=== PATIENT | female | born 1995 | race Caucasian/White ===

== ENCOUNTER → 2017-09-15 | Outpatient (CLI) | payer OTHER ==
[~2017-09-15] MED LIST: ACET325T96 PO; MTR600X PO; OXYC-57 PO; PRENTAB26 PO
--- NOTE | 2017-09-15 13:09 | PAT Medication Instructions ---
Service Date Sep 15, 2017. Current Home Medication List Acetaminophen Tab (Tylenol), 650 MG PO PRN Multivit/Min/Iron/Fol Ac/Pren ( Vitamin), 1 TAB PO HS Medication Instructions For Your Scheduled Surgery - Take the following medications the morning of surgery with a sip of water: Acetaminophen Tab (Tylenol), 650 MG PO PRN (okay to take up to 4 hours prior to surgery if needed) - Take the following medications as scheduled the night before surgery: Multivit/Min/Iron/Fol Ac/Pren ( Vitamin), 1 TAB PO HS Acetaminophen Tab (Tylenol), 650 MG PO PRN (if needed) If you have any questions please call us at [phone] or [phone] or [phone]
[2017-09-15 14:08] LABS: BASO % 0.1 %; BASO ABS # 0.01 K/uL (0-0.2); EOS ABS # 0.08 K/uL (0-0.5); HEMATOCRIT 37.6 % (37-47); HEMOGLOBIN 12.5 g/dL (12.0-16.0); IG# 0.05 K/uL (0.00-0.02); LYMPH ABS # 1.98 K/uL (1.2-3.4); MEAN CELL VOLUME 84.9 fL (80-100); MEAN CORPUSCULAR HEMOGLOBIN 28.2 pg (25-34); MEAN CORPUSCULAR HGB CONC 33.2 g/dl (32-36); MEAN PLATELET VOLUME 12.1 fL (7.4-10.4); MONO % 6.3 %; NEUT ABS # 5.31 K/uL (1.4-6.5); PLATELET COUNT 188 K/uL (130-400); RED CELL DISTRIBUTION WIDTH CV 14.8 % (11.5-14.5); RED CELL DISTRIBUTION WIDTH SD 45.4 fL (36.4-46.3); WHITE BLOOD COUNT 7.93 K/uL (4.8-10.8)
== END | disposition home or self-care (01) ==
LOC: C.LAB 08:00 → EDSTATUS 09-30 07:30
PROVIDERS: ATTEND Obstetrics & Gynecology
DX: Z01.812 Encounter for preprocedural laboratory examination (principal)

== ENCOUNTER 2017-09-27 14:21 | Inpatient (IN) | payer OTHER ==
[~2017-09-27] VITALS: Ht 160 cm; Wt 126.0 kg
[~2017-09-27 14:21] MED LIST changes: -MTR600X PO; -OXYC-57 PO
[2017-09-27] MEDS ORDERED: LACTATED RINGER'S 1000ML 1,000 ML IV SCH ×2 (14:28→16:34)
[2017-09-27] MEDS ORDERED: CITRIC ACID/SODIUM CITRATE 15 ML UDC PO ONE (14:30)
--- NOTE | 2017-09-27 14:32 | History & Physical Bridge Note ---
H&P Re-Evaluation Bridge Note: I have examined the patient, reviewed the History & Physical and in the interval since the performance of the History & Physical I have noted the following changes of clinical significance: Patient scheduled for a repeat section on 09/30/17 but comes in today with contractions therefore will proceed with her repeat section today. Risks, benefits and alternatives were discussed and informed consent was already signed.
[2017-09-27] MEDS ORDERED: MoRPHine SULFATE PF 1 MG/ML 10 ML AMP/VIAL ONE (14:58)
[2017-09-27] MEDS ORDERED: FENTANYL CITRATE INJ 50 MCG/1 ML 2 ML VIAL ONE (14:58)
[2017-09-27 15:00] LABS: BASO % 0.1 %; BASO ABS # 0.01 K/uL (0-0.2); COMPLETE YES; EOS % 0.6 %; HEMATOCRIT 40.4 % (37-47); IG% 0.6 %; LYMPH % 19.4 %; LYMPH ABS # 1.64 K/uL (1.2-3.4); MEAN CELL VOLUME 85.4 fL (80-100); MEAN CORPUSCULAR HGB CONC 33.9 g/dl (32-36); MEAN PLATELET VOLUME 12.3 fL (7.4-10.4); MONO % 4.3 %; PLATELET COUNT 186 K/uL (130-400); RED BLOOD COUNT 4.73 M/uL (4.2-5.4); WHITE BLOOD COUNT 8.44 K/uL (4.8-10.8)
[2017-09-27] MEDS ORDERED: CEFAZOLIN IV 3,000 MG in SYRINGE 0 ML IV SCH (15:00)
[2017-09-27] MEDS ORDERED: CEFAZOLIN 3000MG IV PUSH 15 ML IV SCH (15:00)
[2017-09-27] MEDS ORDERED: KETOROLAC TROMETHAMINE 30 MG/ML VIAL ONE (16:02)
[2017-09-27] MEDS ORDERED: OXYTOCIN INJ 10 UNITS/ML VIAL ONE (16:02)
[2017-09-27] MEDS ORDERED: ONDANSETRON INJ 2 MG/ML 2 ML VIAL ONE (16:03)
--- NOTE | 2017-09-27 16:41 | [facility] Post Operative Brief Note ---
Immediate Operative Summary Operative Date Sep 27, 2017. Pre-Operative Diagnosis 1.IUP at 39.5 weeks 2.Previous caesarean section who desires repeat caesarean section 3.Active Labor Post-Operative Diagnosis same Procedure(s) Performed Repeat caesarean section with the of a live female child at 1542. Surgeon Dr. Chan Hiv Nurse Surgeon(s) Zuleyka Valadez RN Estimated Blood Loss 600 ml Findings Patient delivered a viable female infant weighing 9#4oz at 1542 in the vertex position via repeat LTCS. Apgars were 8 at 1 minute and 9 at 5 minutes. Meconium stained amniotic fluid noted at delivery. Cord blood was obtained. An intact placenta with a 3 VC delivered manually at 1543 and sent to pathology. Normal uterus and bilateral tubes and ovaries noted. Both patient and baby tolerated the surgery well and was sent to recovery with stable vital signs. Fluids (cc crystalloids) 1500 Specimens A: Placenta- Exam B: Cord Blood Drains Nielson to gravity Anesthesia Spinal Complication(s) None Disposition L&D
[2017-09-27] MEDS ORDERED: SUPERCREAM 0.870 % 15GM JAR EXT PRN (16:45)
[2017-09-27] MEDS ORDERED: SENNA 8.6 MG TAB PO PRN (16:45)
[2017-09-27] MEDS ORDERED: HYDROCORTISONE ACETATE 25 MG SUPP PR PRN (16:45)
[2017-09-27] MEDS ORDERED: MAGNESIUM HYDROXIDE SUSP 30 ML UDC PO PRN (16:45)
[2017-09-27] MEDS ORDERED: BENZOCAINE 20% AER SPR 82.5 GM CAN EXT PRN (16:45)
[2017-09-27] MEDS ORDERED: LANOLIN OINT EXT PRN ×2 (16:45)
[2017-09-27] MEDS ORDERED: DIPHTHERIA/TETANUS/PERTUSSIS 0.5 ML SYR/VIAL IM. ONE (16:45)
[2017-09-27] MEDS ORDERED: NALOXONE HCL INJ 0.08 MG in SYRINGE 1.8 ML IV PRN (16:46)
[2017-09-27] MEDS ORDERED: LACTATED RINGER'S 1000ML 500 ML IV PRN (16:46)
[2017-09-27] MEDS ORDERED: NALOXONE HCL INJ 1 MG in SODIUM CHLORIDE 0.9% 1000ML 1,000 ML IV PRN (16:46)
[2017-09-27] MEDS ORDERED: SODIUM CHLORIDE 0.9% 1000ML 1,000 ML IV PRN (16:46)
--- NOTE | 2017-09-27 16:48 | Anesthesiology Progress Note ---
Anesthesia Post Op Note Date & Time Sep 27, 2017 at 16:48 Notes Mental Status: alert / awake / arousable, participated in evaluation Nausea / Vomiting: adequately controlled Pain: adequately controlled Airway Patency, RR, SpO2: stable & adequate BP & HR: stable & adequate Hydration State: stable & adequate Neuraxial Anesthesia: was administered, sensory block is resolving Anesthetic Complications: no major complications apparent
[2017-09-27] MEDS ORDERED: KETOROLAC TROMETHAMINE 30 MG/ML VIAL IV. PRN (17:00)
[2017-09-27] MEDS ORDERED: DiphenhydrAMINE HCL 50 MG/ML VIAL IV PRN ×2 (17:00)
[2017-09-27] MEDS ORDERED: NALBUPHINE HCL INJ 10 MG/ML AMP IV PRN (17:00)
[2017-09-27] MEDS ORDERED: MoRPHine SULFATE PF 1 MG/ML 10 ML AMP/VIAL EPI PRN (17:00)
[2017-09-27] MEDS ORDERED: MoRPHine SULFATE 2 MG/ML CARP IV PRN (17:00)
[2017-09-27] MEDS ORDERED: NO NARCOTICS OR SEDATIVES SCH (17:00)
[2017-09-27] MEDS ORDERED: ONDANSETRON INJ 2 MG/ML 2 ML VIAL IV PRN (17:00)
[2017-09-27] MEDS ORDERED: NALOXONE HCL 0.4 MG/1 ML VIAL/CARP IV PRN (17:00)
[2017-09-27] MEDS ORDERED: EpHEDrine SULFATE INJ 50 MG/ML AMP IV PRN (17:00)
[2017-09-27] MEDS ORDERED: MEPERIDINE HCL 25 MG/ML CARP IV PRN (17:00)
[2017-09-27] MEDS ORDERED: PROMETHAZINE HCL INJ 6.25 MG in SODIUM CHLORIDE 0.9% 50ML 50 ML IV PRN (17:00)
--- NOTE | 2017-09-27 17:34 | OPERATIVE REPORT ---
DATE OF OPERATION: 09/27/2017 PREOPERATIVE DIAGNOSES: 1. Intrauterine at 39 weeks and 5 days gestation. 2. Active labor. 3. History of previous section, desires repeat section. POSTOPERATIVE DIAGNOSES: Same. OPERATIVE PROCEDURE: Repeat low transverse section. SURGEON: Dayron Chan DO. COUGAR HUNTER: Zuleyka Mosley RN. ANESTHESIA: Spinal. ESTIMATED BLOOD LOSS: 600 mL. IV FLUIDS: 1500 mL crystalloids. URINE OUTPUT: 100 mL clear yellow urine. SPECIMENS: Placenta and cord blood. DRAINS: Nielson to gravity. COMPLICATIONS: None. DISPOSITION: Labor and delivery. OPERATIVE FINDINGS: The patient delivered a viable female weighing 9 pounds 4 ounces at 1542 in the vertex position via repeat low transverse section. Apgars were 8 at 1 minute and 9 at 5 minutes. Meconium stained amniotic fluid noted at delivery. Cord blood was obtained and an intact placenta with 3-vessel cord was delivered manually at 1543 and sent to pathology. Normal uterus and bilateral tubes and ovaries were noted. Both patient and baby tolerated the surgery well and were sent to recovery with stable vital signs. INDICATIONS FOR PROCEDURE: The patient is a 22-year-old 2, para 1 at 39 weeks and 5 days gestation, who was scheduled for a repeat section on 09/30/2017, and has had a history of a previous section secondary to failure to progress. On the date of admission, 09/27/2017, she was in active labor, sammie every 4 to 5 minutes with spontaneous rupture of membranes with amniotic fluid noted. Therefore, the decision was made to proceed with her repeat section. OPERATIVE PROCEDURE IN DETAIL: The patient was taken to the operating room, where spinal anesthesia was administered. She was immediately placed in the dorsal supine position with a left lateral tilt and was prepped and draped in a manner appropriate for the procedure. Once anesthesia was found to be adequate, a Pfannenstiel skin incision was made over the previous surgical scar and was carried down through to a layer of the rectus fascia. The fascia was nicked in the midline and extended bilaterally with electrocautery. The superior aspect of the fascial incision was grasped with Jasen clamps, elevated, and the rectus muscles were dissected off with the use of the electrocautery and curved Roberts scissors. Likewise, the inferior aspect of the fascial incision was grasped with Jasen clamps, elevated, and the rectus muscles were dissected off with the use of the electrocautery and curved Roberts scissors. The rectus muscles were in midline. Peritoneum was grasped with hemostats x2 and entered with Metzenbaum scissors. The peritoneal incision was then extended cephalocaudally with traction. An extra large Kirt retractor was then placed within the abdomen. The vesicouterine peritoneum was identified and a bladder flap was created with the Metzenbaum scissors and digital traction. The bladder flap was reincorporated beneath the bladder blade. A transverse incision was then made on the uterus and extended bilaterally with the bandage scissors. Meconium stained amniotic fluid was noted. The head was identified and delivered through the incision along with the rest of the baby. The baby was bulb suctioned at delivery. Cord was clamped x2 and cut. The baby was immediately handed to an awaiting supervisor ovens for further evaluation and management. Please see their notes for further baby assessment. Cord blood was then obtained and an intact placenta with 3-vessel cord was delivered through the incision manually and sent to pathology. The uterus was then exteriorized and wrapped in a moist laparotomy sponge. The uterus was then cleared of any trailing membranes and debris with a laparotomy sponge. The uterus was then grasped with ring forceps at 4 quadrants and was closed with 0 Vicryl suture in a continuous locking fashion. A second layer of 0 Vicryl suture was used in an imbricating fashion to ensure hemostasis. Any residual bleeding was suture ligated with 0 Vicryl suture in a [id number] interrupted fashion. Excellent hemostasis was noted. The posterior cul-de-sac was then irrigated with warm saline solution. The uterus was then placed back within its normal anatomic position within the abdomen. The bladder flap was reapproximated to the lower uterine segment with 3-0 Vicryl suture in a continuous running fashion. The anterior cul-de-sac was then irrigated with warm saline solution. Excellent hemostasis was noted. The Kirt retractor was then removed along with the instruments. The peritoneum was then grasped with Keyona clamps in 4 quadrants and was closed with 2-0 Vicryl suture in a continuous running fashion. The rectus fascia was then closed with 0 Vicryl suture in a continuous running fashion. The incision was then irrigated with warm saline solution. The subcutaneous tissue was reapproximated with 2-0 Vicryl suture in an interrupted fashion. Skin was then closed with maged. Excellent hemostasis was noted through all tissue layers. All sponge, instrument, and needle counts were found to be correct x2. Both patient and baby tolerated the surgery well and were in recovery with stable vital signs. I attest to the content of the Intraoperative Record and any orders documented therein. Any exception s are noted below.
[2017-09-27] MEDS: DOCUSATE SODIUM 100 MG CAP PO SCH (20:17)
[2017-09-27] MEDS: SIMETHICONE 80 MG CHEW PO SCH (20:17)
[2017-09-27 20:30] VITALS: BP 131/82; PULSE 81; TEMP 36.9; O2SAT 98
[2017-09-27 20:46] VITALS: Ht 160 cm; Wt 126.0 kg
[2017-09-27 21:05] VITALS: O2SAT 100
[2017-09-27] MEDS ORDERED: INFLUENZA ADMINISTRATION CHARGE ONE (21:30)
[2017-09-27] MEDS ORDERED: INFLUENZA VIRUS QUAD VACCINE 0.5 ML SYR IM. ONE (21:30)
[2017-09-27] MEDS: OXYTOCIN INJ 30 UNITS in LACTATED RINGER'S 1000ML 1,000 ML IV SCH (21:58)
[2017-09-27 22:00] VITALS: O2SAT 99
[2017-09-27 23:00] VITALS: BP 130/74; PULSE 80; TEMP 37; O2SAT 97
[2017-09-28] VITALS (13 sets, daily range): BP systolic 107–131; BP diastolic 66–80; PULSE 80–94; TEMP 36.7–37.2; O2SAT 95–98
[2017-09-28] MEDS: OXYTOCIN INJ 30 UNITS in LACTATED RINGER'S 1000ML 1,000 ML IV SCH (05:40)
[2017-09-28 06:13] LABS: BASO % 0.1 %; BASO ABS # 0.01 K/uL (0-0.2); COMPLETE YES; EOS % 1.2 %; HEMATOCRIT 32.6 % (37-47); IG% 0.4 %; LYMPH % 18.8 %; LYMPH ABS # 1.43 K/uL (1.2-3.4); MEAN CELL VOLUME 85.6 fL (80-100); MEAN CORPUSCULAR HEMOGLOBIN 28.6 pg (25-34); MEAN CORPUSCULAR HGB CONC 33.4 g/dl (32-36); MEAN PLATELET VOLUME 11.7 fL (7.4-10.4); MONO % 6.4 %; NEUT % 73.1 %; PLATELET COUNT 148 K/uL (130-400); RED BLOOD COUNT 3.81 M/uL (4.2-5.4); WHITE BLOOD COUNT 7.61 K/uL (4.8-10.8)
[2017-09-28] MEDS ORDERED: DiphenhydrAMINE HCL 50 MG/ML VIAL IV PRN (08:00)
[2017-09-28] MEDS ORDERED: KETOROLAC TROMETHAMINE 30 MG/ML VIAL IV. PRN (09:00)
[2017-09-28] MEDS ORDERED: DC INTRASPINAL MORPHINE ONE (09:00)
[2017-09-28] MEDS: PRENATAL VITAMIN TAB PO SCH (09:00)
[2017-09-28] MEDS ORDERED: OXYCODONE/ACETAMINOPHEN 5-325 TAB PO PRN (09:00)
[2017-09-28] MEDS: DOCUSATE SODIUM 100 MG CAP PO SCH ×2 (09:00→19:32)
[2017-09-28] MEDS: SIMETHICONE 80 MG CHEW PO SCH ×4 (09:00→19:32)
[2017-09-28] MEDS ORDERED: ZOLPIDEM TARTRATE 5 MG TAB PO PRN (09:00)
[2017-09-28] MEDS ORDERED: ONDANSETRON INJ 2 MG/ML 2 ML VIAL IV PRN (09:00)
[2017-09-28] MEDS: FERROUS SULFATE 325 MG TAB PO SCH (09:00)
--- NOTE | 2017-09-28 10:38 | OB/GYN Progress Note ---
[employer] Progress Note Date of Service Sep 28, 2017. Subjective conversation w/ patient Ambulation: ambulating normally Voiding: no voiding problems Passing Gas: Yes Diet Tolerance: Regular Diet Lochia: Small Feeding Type: Breast Feeding Pain: 2/10 Notes: Doing well, no concerns. Pain well controlled. Tolerating regular diet, +flatus , -BM. Ambulating without difficulty. Lochia minimal. Objective Vital Signs Date Time Temp Pulse Resp B/P (MAP) Pulse Ox O2 Delivery O2 Flow Rate FiO2 09/28/17 09:00 18 97 09/28/17 08:15 37.2 87 18 107/72 (84) 95 Room Air 09/28/17 08:15 95 Room Air 09/28/17 08:00 18 95 09/28/17 06:45 18 97 09/28/17 05:30 18 97 09/28/17 04:25 20 98 09/28/17 03:00 18 98 09/28/17 03:00 37.1 94 18 125/80 (95) 98 Room Air 09/28/17 02:45 20 97 09/28/17 01:45 18 96 09/28/17 00:32 18 95 09/27/17 23:00 18 97 09/27/17 23:00 97 Room Air 09/27/17 23:00 37.0 80 18 130/74 (92) 97 Room Air 09/27/17 22:00 16 99 09/27/17 21:05 20 100 09/27/17 20:30 36.9 81 20 131/82 (98) 98 Room Air 09/27/17 20:30 20 98 09/27/17 20:30 98 Room Air 09/27/17 20:30 98 Room Air Physical Exam General Appearance: WELL-APPEARING Respiratory/Chest: chest non-tender, lungs clear Cardiovascular: regular rate, rhythm Abdomen: normal bowel sounds, soft Fundus: Firm Extremities: normal range of motion, non-tender, no calf tenderness Laboratory Results Last 24 Hours Test 09/27/17 14:53 09/28/17 05:53 White Blood Count 8.44 K/uL 7.61 K/uL Red Blood Count 4.73 M/uL 3.81 M/uL Hemoglobin 13.7 g/dL 10.9 g/dL Hematocrit 40.4 % 32.6 % Mean Corpuscular Volume 85.4 fL 85.6 fL Mean Corpuscular Hemoglobin 29.0 pg 28.6 pg Mean Corpuscular Hemoglobin Concent 33.9 g/dl 33.4 g/dl Platelet Count 186 K/uL 148 K/uL Mean Platelet Volume 12.3 fL 11.7 fL Neutrophils (%) (Auto) 75.0 % 73.1 % Lymphocytes (%) (Auto) 19.4 % 18.8 % Monocytes (%) (Auto) 4.3 % 6.4 % Eosinophils (%) (Auto) 0.6 % 1.2 % Basophils (%) (Auto) 0.1 % 0.1 % Neutrophils # (Auto) 6.33 K/uL 5.56 K/uL Lymphocytes # (Auto) 1.64 K/uL 1.43 K/uL Monocytes # (Auto) 0.36 K/uL 0.49 K/uL Eosinophils # (Auto) 0.05 K/uL 0.09 K/uL Basophils # (Auto) 0.01 K/uL 0.01 K/uL RDW Standard Deviation 45.6 fL 46.5 fL RDW Coefficient of Variation 14.9 % 15.0 % Immature Granulocyte % (Auto) 0.6 % 0.4 % Immature Granulocyte # (Auto) 0.05 K/uL 0.03 K/uL Assessment and Plan Post-Op Day Number: 1 Continue Routine Care: -Continue routine postop care.
[2017-09-28] MEDS: OXYCODONE/ACETAMINOPHEN 5-325 TAB PO PRN ×2 (13:57→19:33)
[2017-09-28] MEDS: IBUPROFEN 600 MG TAB PO PRN ×2 (13:57→19:32)
[2017-09-28] MEDS ORDERED: BISACODYL 5 MG TABEC PO ONE (22:00)
[2017-09-29] MEDS: IBUPROFEN 600 MG TAB PO PRN ×4 (00:52→15:07)
[2017-09-29] MEDS: OXYCODONE/ACETAMINOPHEN 5-325 TAB PO PRN ×4 (00:52→15:08)
[2017-09-29] MEDS ORDERED: BISACODYL 10 MG SUPP PR PRN (06:00)
[2017-09-29 07:09] LABS: HEMATOCRIT 32.5 % (37-47)
[2017-09-29 07:30] VITALS: BP 126/77; PULSE 68; TEMP 37; O2SAT 98
[2017-09-29] MEDS: SIMETHICONE 80 MG CHEW PO SCH ×3 (09:06→17:02)
[2017-09-29] MEDS: DOCUSATE SODIUM 100 MG CAP PO SCH (09:06)
[2017-09-29] MEDS: PRENATAL VITAMIN TAB PO SCH (09:06)
[2017-09-29] MEDS: FERROUS SULFATE 325 MG TAB PO SCH (09:06)
--- NOTE | 2017-09-29 10:10 | Surgery Progress Note ---
Surgery Progress Note Date of Service Sep 29, 2017. Subjective Post OP Day: 2 + feeling well, + ambulating, + pain controlled, + using REGISTERED REPRESENTATIVE, No complaints, No chest pain, No SOB, No bowel movement, No flatus, No nausea, No vomiting, No diet (Tolerating PO food and meds) Objective Vital Signs: Date Time Temp Pulse Resp B/P (MAP) Pulse Ox O2 Delivery O2 Flow Rate FiO2 09/29/17 09:53 Room Air 09/29/17 07:30 37.0 68 20 126/77 (93) 98 Room Air 09/28/17 23:10 97 Room Air 09/28/17 23:10 37.1 80 18 127/74 (91) 97 Room Air 09/28/17 15:40 97 Room Air 09/28/17 15:40 37.1 84 18 121/66 (84) 97 Room Air 09/28/17 12:30 36.7 82 18 131/80 (97) 97 Room Air General Appearance: WD/WN, no apparent distress Head: normocephalic, atraumatic Neck: supple, no adenopathy, thyroid normal, no JVD, no carotid bruits, trachea midline Respiratory/Chest: chest non-tender, lungs clear, normal breath sounds, no respiratory distress, no accessory muscle use Cardiovascular: regular rate, rhythm, no edema, no gallop, no JVD, no murmur Abdomen: normal bowel sounds, non tender, non distended, soft, no organomegaly , no pulsatile mass Incision(s): clean, dry, intact, no erythema, no drainage Extremities: normal range of motion, non-tender, normal inspection, no pedal edema, no calf tenderness, normal capillary refill, pelvis stable Laboratory Results: Results Past 24 Hours Test 09/29/17 06:44 Range/Units Hemoglobin 10.6 12.0-16.0 g/dL Hematocrit 32.5 37-47 % Assessment & Plan C./sec day #2 pt doing well No complaints anticipate disch tomorrow
--- NOTE | 2017-09-29 14:17 | Progress Note ---
Progress Note Date of Service Sep 29, 2017. Progress Note Pt wishes o go home today, as per Nurse Disch order placed
[2017-09-29] MEDS ORDERED: MTR600X PO (14:18)
[2017-09-29] MEDS ORDERED: OXYC-57 PO (14:18)
--- NOTE | 2017-09-29 14:19 | Discharge Instructions ---
Discharge Instructions Date of Service Sep 29, 2017. Admission Reason for Admission: R/O Labor, Previous Discharge Discharge Diagnosis / Problem: postop Discharge Goals Goal(s): Routine recovery after Activity Recommendations Activity Limitations: as noted below ACTIVITY RECOMMENDATIONS: * Gradual return to full activity over the next 2-3 weeks. * No lifting - nothing heavier than baby over the next 2-3 weeks. * Do not engage in vigorous exercise, sexual activity or sports until cleared by your physician. * Do not drive or operate any motorized equipment until cleared by your physician. * You may shower/bathe daily. BREAST CARE: If you are not breast feeding: * Wear a supportive bra 24 hours a day for one to two weeks. * Avoid stimulating your breasts and nipples as much as possible during the first few weeks after delivery. * When taking a shower, have the warm water hit your back, not breasts. * When your breasts feel full, apply ice packs. Usually three to four times a day helps ease the discomfort. * Take a mild pain medication (Tylenol/Motrin) when you are uncomfortable. If breast feeding: * Use breast milk to lubricate nipples. Lansinoh cream may be used for sore nipples. You do not need to remove cream prior to breast feeding. If using a different brand of cream, check the label for directions regarding removal of cream prior to nursing. * Wear a supportive bra. * If having problems with breasts or breast feeding, call a peoplesoft consultant or your health care provider. OVER THE COUNTER MEDICATION: * For discomfort or pain, you may use Acetaminophen (Tylenol), Ibuprofen (Advil ), or Naproxen (Aleve) following the package directions. * For constipation you may use Colace following the package directions. SPECIAL CARE INSTRUCTIONS: When you are discharged from the hospital, it is important for you to follow the instructions listed below: * During the first week at home, you should be able to care for yourself and your baby. In addition, the usual light household activities are encouraged. * Limit your activities to the way you feel. Do not try to clean the house or move furniture. Be sensible. * If you actively engage in sports and have done so up until the time of your delivery, you may resume these activities as soon as you feel able. This may take up to one month or even longer. Use good judgment. * Continue to take your vitamins for at least six weeks after the of your baby. * Your diet need not be limited unless you were on a special diet before your delivery. Breast-feeding mothers need around 2500 calories per day and at least 64-80 ounces of fluid per day (8 to 10 glasses). * You should eat foods from the four major food groups. Crash diets or fad diets are to be avoided. Eating lean meats, fresh fruits and vegetables, low-fat dairy products, high fiber foods and a regular exercise program, will help you get back to your pre- weight without putting your health at risk. * Constipation is sometimes a problem after delivery. Take a mild laxative as needed. If breast feeding, Milk of Magnesia is acceptable to use. You may use a suppository or Fleets enema if no episiotomy. * A daily shower or tub bath is suggested. Be sure to thoroughly and gently dry the perineum. * A bloody vaginal discharge will usually continue until around four weeks post . A small amount of bleeding may continue for as long as six weeks. Vaginal discharge changes from the bright red bleeding after delivery to pink then brownish and finally yellowish-pink before becoming white and disappearing. * Bleeding may increase with activity. Your first period may come in 4-8 weeks. If you are breast feeding, your period may be delayed even longer. * [place] (sex) can begin whenever both you and your partner feel comfortable and do not have any form of genital infection. It is recommended that you wait at least six weeks for internal and external healing to occur. If you have questions, please talk to your health care practitioner. A condom should be used to prevent infection and . * Foreplay, gentle intercourse and lubrication is very important the first several times to prevent pain. A water-based lubricant such as K-Y jelly or Astroglide may be used. * Tampons and/or Douching should be avoided until after six weeks check-up. * If you have RH negative blood and your baby is RH positive, you will receive RHOGAM by injection prior to discharge. The nurse will give you a card to keep with you that has the date and place that you received RHOGAM after delivery. * During your care, you had a Rubella screen done to check for the presence of rubella antibodies in your blood. If your test was negative, you will receive a Rubella vaccine prior to discharge. This vaccine may cause a fever, soreness at the injection site and flu-like symptoms. If these symptoms persist, notify your health care practitioner. is not advised for three months after a Rubella vaccine. * Verbalizes understanding of car seat law as reviewed with patient nursing. * Car Seat hand-out given and reviewed with patient by nursing. * Shaken baby information reviewed with patient by nursing. Call you doctor if: * Heavy bleeding (saturating several pads an hour) or passing clots the size of your fist. * A fever >101 degrees F (38.3 degrees C) on two occasions four hours apart and /or chills. * Unusual pain in the pelvic or vaginal areas. Pain should improve each day . * Call the doctor for any increased redness, drainage or swelling around the incision and any pain unrelieved by prescribed pain medication. * Any signs or symptoms of phlebitis (possible blood clots forming in the veins ): leg pain, warm, red or swollen area on leg. * "Baby Blues" lasting longer than two weeks. If you have any questions or concerns, call your health care practitioner at . FOLLOW-UP VISIT: * Incision check (staple removal) in 1 week. Please call doctor's office at to set up appointment. * Please call the office at to schedule a 6 week examination. It is important you keep this appointment. * It is important for you to make arrangements for either yearly or twice yearly check-ups thereafter. . Current Hospital Diet Patient's current hospital diet: Regular OB Diet Discharge Diet Recommended Diet: Regular Diet Procedures Procedures Performed: Repeat caesarean section with the of a live female child at 1542. Pending Studies Studies pending at discharge: no Medical Emergencies . Who to Call and When: Medical Emergencies: If at any time you feel your situation is an emergency, please call [phone] immediately. . Non-Emergent Contact Non-Emergency issues call your: Specialist . . "Provider Documentation" section prepared by Jordan Lyons. . VTE Core Measure Inpt VTE Proph given/why not?: Treatment not indicated
[2017-09-29 15:35] VITALS: BP 134/82; PULSE 87; TEMP 36.6; O2SAT 97
[2017-09-29] MEDS ORDERED: INFLUENZA VIRUS QUAD VACCINE 0.5 ML SYR IM. ONE (18:30)
[2017-09-29] MEDS ORDERED: INFLUENZA ADMINISTRATION CHARGE ONE (18:30)
[2017-09-29 19:10] VITALS: BP_DIAS 82; PULSE 87; TEMP 36.6
== END 2017-09-29 19:10 | disposition home or self-care (01) | DRG 766 ==
LOC: C.LD 14:21 → C.OPB 14:21 → C.LD 14:30 → C.OPB 14:30 → C.OBG 19:39
PROVIDERS: ADMIT Obstetrics & Gynecology; ATTEND Obstetrics & Gynecology
PROC: 10D00Z1 Extraction of Products of Conception, Low, Open Approach (ICD-10-PCS; principal; 2017-09-27 15:39)
DX: O34.219 Maternal care for unspecified type scar from previous cesarean delivery (principal); Z22.330 Carrier of Group B streptococcus; Z3A.39 39 weeks gestation of pregnancy

== ENCOUNTER 2021-04-17 12:19 | Inpatient (IN) ==
--- NOTE | 2021-04-17 13:24 | Progress Note ---
Date of Service April 17, 2021 Subjective Pt is 38+weeks Prior c/sec SROM @ 03;00hrs today preop orders placed
[2021-04-17] MEDS ORDERED: CITRIC ACID/SODIUM CITRATE 15 ML UDC PO SCH (13:30)
[2021-04-17] MEDS ORDERED: LACTATED RINGER'S 1,000 ML IV SCH ×3 (13:30→18:15)
[2021-04-17 13:49] LABS: Basophils # (auto) 0.01 K/uL (0-0.2); Basophils % (auto) 0.1 %; Eosinophils # (auto) 0.09 K/uL (0-0.5); Eosinophils % (auto) 1.3 %; Hematocrit (blood only) 35.1 % (37-47); Hemoglobin 11.9 g/dL (12.0-16.0); Immature Granulocytes # (auto) 0.02 K/uL (0.00-0.02); Immature Granulocytes % (auto) 0.3 %; Lymphocytes # (auto) 1.33 K/uL (1.2-3.4); Lymphocytes % (auto) 18.5 %; Mean Corpuscular Hemoglobin 28.8 pg (25-34); Mean Corpuscular Hgb Conc 33.9 g/dL (32-36); Monocytes # (auto) 0.41 K/uL (0.11-0.59); Monocytes % (auto) 5.7 %; Neutrophils # (auto) 5.31 K/uL (1.4-6.5); Neutrophils % (auto) 74.1 %; Platelet Count 212 K/uL (130-400); RDW Coefficient of Variation 14.4 % (11.5-14.5); RDW Standard Deviation 44.5 fL (36.4-46.3); Red Blood Count 4.13 M/uL (4.2-5.4); White Blood Count 7.17 K/uL (4.8-10.8)
[2021-04-17] MEDS ORDERED: DEXTROSE 5% IV SCH (14:00)
[2021-04-17] MEDS ORDERED: CEFOXITIN IV SCH (14:00)
--- NOTE | 2021-04-17 14:51 | Anesthesiology Consultation ---
Date of Service April 17, 2021 Assessment & Plan Chart Review Chart Review: Acceptable Risk for Surgery and Patient NOT seen in Pre Admission Testing Consults Requested none ASA ASA3 Proposed Anesthesia Anesthesia Type: Spinal History Surgery Operation Date: 04/17/21 15:00 Proposed Procedures p Section in LD - Jordan Lyons MD Height/Weight Height: 5 ft 3 in Weight: 119.295 kg Allergies Allergy/AdvReac Type Severity Reaction Status Date / Time Sulfa (Sulfonamide Allergy Unknown Unknown Verified 09/22/20 22:27 Antibiotics) Medications Home Medications Medication Instructions Recorded Confirmed Last Taken [id number] [id number] 1 tab PO DAILY 09/22/20 09/22/20 Unknown [] Past Medical History Medical History No significant past medical history Exercise / Class Metabolic Activity II 4-5 Yardwork/Stairs/Walk up hill Past Anesthesia History No Hx of Anesthesia Complications and No Family Hx of Anesthesia Complications History of PONV No Hx of PONV and No Hx of Motion Sickness Social History Smoking Status: Never smoker Hx Alcohol Use: No Hx Substance Use: No Physical Exam Vital Signs Last Vital Signs Temp 37.0 C 04/17/21 13:52 Resp 20 04/17/21 13:52 Testing Laboratory Results 04/17/21 13:37 Blood Type O Positive 04/17/21 13:37 Antibody Screen NEGATIVE 04/17/21 13:37
[2021-04-17] MEDS ORDERED: OXYTOCIN 10 UNITS/ML VIAL ONE ×3 (15:23→17:00)
[2021-04-17] MEDS ORDERED: fentaNYL citrate 100 MCG/2 ML VIAL ONE (15:26)
[2021-04-17] MEDS ORDERED: MoRPHine SULFATE PF 1 MG/ML 10 ML AMP/VIAL ONE (15:26)
[2021-04-17] MEDS ORDERED: PHENYLEPHRINE 100MCG/ML 5ML SYR ONE (16:15)
[2021-04-17] MEDS ORDERED: METHYLERGONOVINE MALEATE 0.2 MG/ML AMP ONE (16:24)
[2021-04-17] MEDS ORDERED: diphenhydrAMINE 50 MG/ML VIAL IV PRN (17:19)
[2021-04-17] MEDS ORDERED: PROMETHAZINE HCL 25 MG in SODIUM CHLORIDE 0.9% 50 ML IV PRN (17:19)
[2021-04-17] MEDS ORDERED: LACTATED RINGER'S 500 ML IV PRN (17:19)
[2021-04-17] MEDS ORDERED: MoRPHine SULFATE PF 1 MG/ML 10 ML AMP/VIAL INT SPINAL ONE (17:19)
[2021-04-17] MEDS ORDERED: NALOXONE HCL 1 MG in SODIUM CHLORIDE 0.9% 1000ML 1,000 ML IV PRN (17:19)
[2021-04-17] MEDS ORDERED: ePHEDrine sulfate 50 MG/ML AMP IV PRN (17:19)
[2021-04-17] MEDS ORDERED: ONDANSETRON INJ 2 MG/ML 2 ML VIAL IV PRN (17:19)
[2021-04-17] MEDS ORDERED: NALOXONE HCL 0.4 MG/1 ML VIAL/CARP IV PRN (17:19)
[2021-04-17] MEDS ORDERED: NALOXONE HCL 0.08 MG in SYRINGE 1.8 ML IV PRN (17:19)
[2021-04-17] MEDS ORDERED: DC INTRASPINAL MORPHINE SCH (17:30)
[2021-04-17] MEDS ORDERED: NO NARCOTICS OR SEDATIVES SCH (17:30)
[2021-04-17] MEDS ORDERED: SODIUM CHLORIDE 0.9% 1000ML 1,000 ML IV SCH (17:30)
[2021-04-17] MEDS ORDERED: BENZOCAINE 20% AER SPR 82.5 GM CAN EXT PRN (18:02)
[2021-04-17] MEDS ORDERED: SUPERCREAM 0.870% 15 GM JAR EXT PRN (18:02)
[2021-04-17] MEDS ORDERED: SENNA 8.6 MG TAB PO PRN (18:02)
[2021-04-17] MEDS ORDERED: HYDROCORTISONE ACETATE 25 MG SUPP PR PRN (18:02)
[2021-04-17] MEDS ORDERED: DIPHTHERIA/TETANUS/PERTUSSIS 0.5 ML SYR/VIAL IM ONE (18:02)
[2021-04-17] MEDS ORDERED: MAGNESIUM HYDROXIDE SUSP 30 ML UDC PO PRN (18:02)
--- NOTE | 2021-04-17 18:02 | Post Operative Brief Note ---
Immediate Post Op Note v1 Date of Surgery April 17, 2021 Pre & Post Diagnosis Operation Date: 04/17/21 15:00 Pre-Op Diagnosis: SROM AT 38 weeks; Previous Sections x 2; Desires Repeat Section Post-Op Diagnosis: SROM AT 38 weeks; Previous Sections x 2; Desires Repeat Section I identified the patient and participated in the time-out.: Yes Procedure Operation Date: 04/17/21 15:00 Actual Procedures p Section in or #3; Live Female Infant at 1620(Bilateral) - Jordan Lyons MD Surgeon Jordan Lyons MD [employer] Assembler dr agarwal Estimated Blood Loss 700 Findings Consistent with Post-Op Diagnosis Drains Nielson Catheter
--- NOTE | 2021-04-17 18:21 | Anesthesiology Progress Note ---
Date of Service April 17, 2021 Anesthesia Post Procedure Vital Signs Vital Signs: Temp Pulse Resp BP Pulse Ox 04/17/21 18:18 71 95 04/17/21 18:13 69 93 04/17/21 18:11 115/62 04/17/21 18:08 86 93 04/17/21 18:03 75 95 04/17/21 18:00 73 20 117/62 04/17/21 17:58 71 95 04/17/21 17:53 76 94 04/17/21 17:50 85 18 110/75 04/17/21 17:48 77 95 04/17/21 17:43 80 95 04/17/21 17:40 81 18 118/67 04/17/21 17:38 117 H 100 04/17/21 17:36 71 94 04/17/21 17:33 71 96 04/17/21 17:30 75 20 120/72 04/17/21 17:28 78 92 04/17/21 17:23 82 96 04/17/21 17:21 80 117/65 04/17/21 17:20 36.5 C 20 04/17/21 17:18 106 H 137/72 98 04/17/21 13:52 37.0 C 20 Transfer of Care Handoff Completed per policy Notes Mental Status: alert / awake / arousable Patient Amnestic to Procedure: Yes Nausea / Vomiting: adequately controlled Pain: adequately controlled Airway Patency, RR, SpO2: stable & adequate BP & HR: stable & adequate Hydration State: stable & adequate Neuraxial Anesthesia: was administered and sensory block is resolving Anesthetic Complications: no major complications apparent
[2021-04-17] MEDS: KETOROLAC 30 MG/ML VIAL IV PRN (19:17)
[2021-04-17] MEDS: OXYTOCIN 20 UNITS in LACTATED RINGER'S 1,000 ML IV SCH (19:50)
[2021-04-17] MEDS: SIMETHICONE 80 MG CHEW PO SCH (21:22)
[2021-04-17] MEDS: DOCUSATE SODIUM 100 MG CAP PO SCH (21:22)
--- NOTE | 2021-04-17 21:25 | Operative Report (OR) ---
DATE OF OPERATION: 04/17/2021 INDICATION FOR SURGERY: This is a 25-year-old G4, P2, patient has had prior sections and presently at 38 weeks. Today, she presented to labor and delivery with spontaneous rupture of membranes at about 3:00 a.m. this morning. The plan is to proceed with another section. PREOPERATIVE DIAGNOSES: 1. at term. 2. Previous section, wishes to have repeat section x3. POSTOPERATIVE DIAGNOSES: 1. at term. 2. Previous section, wishes to have repeat section x3. SURGEON: Jordan Lyons MD. ASSISTANTS: Dr. Rocha and Zuleyka Valadez RN. COMPLICATIONS: None. DRAINS: None. FINDINGS: in cephalic presentation. Uterus, tubes are normal. Minimal adhesions in the pelvis. PATHOLOGY: cord blood.placenta DISPOSITION: Stable to recovery room. ESTIMATED BLOOD LOSS: 700 mL. INTRAVENOUS FLUIDS: 2200 mL. URINE OUTPUT: 150 mL of clear urine at the end of procedure. ANESTHESIA: Spinal. PROCEDURE: Repeat section x3. DESCRIPTION OF PROCEDURE: The patient was taken to the operating room where she was prepped and draped in normal sterile fashion. A transverse incision was made through the old scar, carried down to the fascia. Fascia was incised in the midline and extended laterally on both sides. Fascia was carefully dissected superiorly and inferiorly from the rectus abdominus muscle. Peritoneum was identified and entered sharply. Once inside the abdomen, an Kirt retractor was placed for retraction. Findings in the abdomen are as dictated above. A low transverse incision was made on the uterus and extended laterally on both sides with a scalpel and bandage scissors. 's head was delivered. There was no nuchal cord. Cord was clamped and cut and handed to the waiting pediatric team. Details of the is in the pediatric record. Cord blood was obtained. Placenta was manually removed. Uterus was exteriorized and cleared of all clots and debris. Uterus was closed in 2 layers using Vicryl stitch. Copious amount of irrigation used to irrigate the abdomen. There was good hemostasis. The Kirt retractor was removed and the fascia was closed in a running fashion using PDS suture. Once again, good hemostasis was obtained. More irrigation was used to irrigate the subcutaneous space. Plain sutures were used to close the subcutaneous space and skin was closed with maged. All instruments were removed from the uterus and accounted for x2 including sponges, needles and retractors. The patient was returned to recovery room in stable condition. I attest to the content of the Intraoperative Record and any orders documented therein. Any exceptions are noted below. CARLITO
[2021-04-18 06:19] LABS: Basophils # (auto) 0.01 K/uL (0-0.2); Basophils % (auto) 0.1 %; Eosinophils # (auto) 0.07 K/uL (0-0.5); Eosinophils % (auto) 0.9 %; Hematocrit (blood only) 32.3 % (37-47); Hemoglobin 10.8 g/dL (12.0-16.0); Immature Granulocytes # (auto) 0.03 K/uL (0.00-0.02); Immature Granulocytes % (auto) 0.4 %; Lymphocytes % (auto) 17.4 %; Mean Corpuscular Hemoglobin 28.9 pg (25-34); Mean Corpuscular Hgb Conc 33.4 g/dL (32-36); Mean Corpuscular Volume 86.4 fL (80-100); Monocytes # (auto) 0.56 K/uL (0.11-0.59); Neutrophils # (auto) 5.97 K/uL (1.4-6.5); Neutrophils % (auto) 74.2 %; Platelet Count 213 K/uL (130-400); RDW Coefficient of Variation 14.5 % (11.5-14.5); RDW Standard Deviation 45.3 fL (36.4-46.3); Red Blood Count 3.74 M/uL (4.2-5.4); White Blood Count 8.04 K/uL (4.8-10.8)
[2021-04-18] MEDS: SIMETHICONE 80 MG CHEW PO SCH ×3 (08:47→20:58)
[2021-04-18] MEDS: PRENATAL VITAMIN 1 TAB PO SCH (08:47)
[2021-04-18] MEDS: DOCUSATE SODIUM 100 MG CAP PO SCH ×2 (08:47→20:56)
[2021-04-18] MEDS: FERROUS SULFATE 325 MG TAB PO SCH (08:47)
--- NOTE | 2021-04-18 09:19 | Obstetrical Progress Note ---
Date of Service April 18, 2021 Subjective Ambulation: limited ambulation Voiding: guido catheter in place Passing Gas:: No Diet Tolerance:: regular diet Lochia:: Small Feeding Type:: breast feeding Review of Systems All systems reviewed & are unremarkable except as noted in HPI & below Physical Exam Constitutional WD/WN, vitals as above + obese and comfortable abdomen soft and non-tender incision c/d/i Guido draining well no edema neg Larissa's will increase care and plan for Guido removal this AM Results & Data ([facility]) Vital Signs (Past 12 Hours) Vital Signs Temp Pulse Resp BP Pulse Ox 04/18/21 08:00 36.7 C 76 18 113/74 94 04/18/21 07:40 18 97 04/18/21 06:15 16 95 04/18/21 05:00 16 95 04/18/21 04:15 16 96 04/18/21 03:00 36.8 C 80 16 100/67 96 04/18/21 02:20 16 94 04/18/21 01:15 16 94 04/18/21 00:10 16 93 04/17/21 23:15 36.5 C 76 16 110/69 95 04/17/21 22:18 16 97 04/17/21 21:20 16 97 Laboratory Results Laboratory Results - last 72 hr 04/17/21 04/17/21 04/17/21 13:37 13:37 13:55 WBC 7.17 RBC 4.13 L Hgb 11.9 L Hct 35.1 L MCV 85.0 MCH 28.8 MCHC 33.9 RDW Std Deviation 44.5 RDW Coeff of Sanju 14.4 Plt Count 212 MPV 11.0 H Immature Gran % (Auto) 0.3 Neut % (Auto) 74.1 Lymph % (Auto) 18.5 [place] % (Auto) 5.7 Eos % (Auto) 1.3 Baso % (Auto) 0.1 Neut # (Auto) 5.31 Lymph # (Auto) 1.33 [place] # (Auto) 0.41 Eos # (Auto) 0.09 Baso # (Auto) 0.01 Immature Gran # (Auto) 0.02 COVID-19 Eval [facility] SARS-CoV-2, RNA, NAAT Blood Type O Positive Antibody Screen NEGATIVE 04/17/21 04/18/21 13:55 06:09 WBC 8.04 RBC 3.74 L Hgb 10.8 L Hct 32.3 L MCV 86.4 MCH 28.9 MCHC 33.4 RDW Std Deviation 45.3 RDW Coeff of Sanju 14.5 Plt Count 213 MPV 11.0 H Immature Gran % (Auto) 0.4 Neut % (Auto) 74.2 Lymph % (Auto) 17.4 [place] % (Auto) 7.0 Eos % (Auto) 0.9 Baso % (Auto) 0.1 Neut # (Auto) 5.97 Lymph # (Auto) 1.40 [place] # (Auto) 0.56 Eos # (Auto) 0.07 Baso # (Auto) 0.01 Immature Gran # (Auto) 0.03 H COVID-19 Eval Order SARS-CoV-2, RNA, NAAT NEGATIVE Blood Type Antibody Screen
[2021-04-18] MEDS: KETOROLAC 30 MG/ML VIAL IV PRN (10:50)
[2021-04-18] MEDS ORDERED: PROMETHAZINE HCL 25 MG in SODIUM CHLORIDE 0.9% 50 ML IV PRN (11:20)
[2021-04-18] MEDS ORDERED: ONDANSETRON INJ 2 MG/ML 2 ML VIAL IV PRN (11:20)
[2021-04-18] MEDS ORDERED: diphenhydrAMINE 50 MG/ML VIAL IV PRN (11:20)
[2021-04-18] MEDS ORDERED: ZOLPIDEM TARTRATE 5 MG TAB PO PRN (11:20)
[2021-04-18] MEDS ORDERED: diphenhydrAMINE Capsule 25 MG CAP PO PRN (11:20)
[2021-04-18] MEDS: IBUPROFEN 600 MG TAB PO PRN ×2 (16:29→20:56)
[2021-04-18] MEDS: oxyCODONE/ACETAMINOPHEN 5mg/325mg TAB PO PRN ×2 (16:29→20:56)
[2021-04-18] MEDS ORDERED: bisacodyL 5 MG TABEC PO SCH (20:00)
[2021-04-19] MEDS: IBUPROFEN 600 MG TAB PO PRN ×2 (05:26→09:40)
[2021-04-19] MEDS: OXYTOCIN 20 UNITS in LACTATED RINGER'S 1,000 ML IV SCH (06:06)
[2021-04-19 06:28] LABS: Hematocrit (blood only) 31.9 % (37-47); Hemoglobin 10.3 g/dL (12.0-16.0)
[2021-04-19] MEDS: DOCUSATE SODIUM 100 MG CAP PO SCH (07:54)
[2021-04-19] MEDS: FERROUS SULFATE 325 MG TAB PO SCH (07:54)
[2021-04-19] MEDS: PRENATAL VITAMIN 1 TAB PO SCH (07:54)
[2021-04-19] MEDS: SIMETHICONE 80 MG CHEW PO SCH (07:55)
--- NOTE | 2021-04-19 09:30 | Obstetrical Progress Note ---
Date of Service April 19, 2021 Subjective Ambulation: ambulating normally Voiding: no voiding problems Passing Gas:: Yes Diet Tolerance:: regular diet Lochia:: Small Feeding Type:: breast feeding abdomen soft and non-tender incision c/d/i no edema/neg Larissa's for d/c today f/u in 1 week in office Results & Data ([facility]) Vital Signs (Past 12 Hours) Vital Signs Temp Pulse Pulse Resp BP Pulse Ox 04/19/21 07:56 36.6 C 74 18 116/77 96 04/19/21 00:05 18 04/18/21 23:17 36.9 C 68 18 106/69 96 Laboratory Results Laboratory Results - last 48 hr 04/17/21 04/17/21 04/17/21 13:37 13:37 13:55 WBC 7.17 RBC 4.13 L Hgb 11.9 L Hct 35.1 L MCV 85.0 MCH 28.8 MCHC 33.9 RDW Std Deviation 44.5 RDW Coeff of Sanju 14.4 Plt Count 212 MPV 11.0 H Immature Gran % (Auto) 0.3 Neut % (Auto) 74.1 Lymph % (Auto) 18.5 [place] % (Auto) 5.7 Eos % (Auto) 1.3 Baso % (Auto) 0.1 Neut # (Auto) 5.31 Lymph # (Auto) 1.33 [place] # (Auto) 0.41 Eos # (Auto) 0.09 Baso # (Auto) 0.01 Immature Gran # (Auto) 0.02 COVID-19 Eval Order Covid19 [facility] SARS-CoV-2, RNA, NAAT Blood Type O Positive Antibody Screen NEGATIVE 04/17/21 04/18/21 04/19/21 13:55 06:09 05:59 WBC 8.04 RBC 3.74 L Hgb 10.8 L 10.3 L Hct 32.3 L 31.9 L MCV 86.4 MCH 28.9 MCHC 33.4 RDW Std Deviation 45.3 RDW Coeff of Sanju 14.5 Plt Count 213 MPV 11.0 H Immature Gran % (Auto) 0.4 Neut % (Auto) 74.2 Lymph % (Auto) 17.4 [place] % (Auto) 7.0 Eos % (Auto) 0.9 Baso % (Auto) 0.1 Neut # (Auto) 5.97 Lymph # (Auto) 1.40 [place] # (Auto) 0.56 Eos # (Auto) 0.07 Baso # (Auto) 0.01 Immature Gran # (Auto) 0.03 H COVID-19 Eval Order SARS-CoV-2, RNA, NAAT NEGATIVE Blood Type Antibody Screen
[2021-04-19] MEDS ORDERED: bisacodyL 10 MG SUPP PR PRN (18:02)
--- NOTE | 2021-04-24 22:06 | Discharge Summary (DS) ---
DATE OF ADMISSION: 04/17/2021 DATE OF DISCHARGE: 04/19/2021 CHIEF COMPLAINT: 1. at term. 2. Previous section, wishes to have repeat . 3. The patient presented to labor and delivery with spontaneous rupture of membranes. HISTORY OF PRESENT ILLNESS: This is a 25-year-old , who presented to labor and delivery on 06/2021. She was 38 weeks and had scheduled for section after 39 weeks; however, on this fateful day, the patient presented with spontaneous rupture of membrane. Decision was therefor e made to proceed with section. section was performed. Details of surgery is in t he surgical note and the patient delivered a live . Surgery was otherwise unremarkable. [facility] postop day #1 and was discharged home on 04/19/2021 in stable c ondition. PAST MEDICAL HISTORY: None. PAST SURGICAL HISTORY: Prior section. FAMILY HISTORY: Noncontributory. SOCIAL HISTORY: The patient was single and had a previous infant delivery via . FAMILY HISTORY: Noncontributory. ALLERGIES: THE PATIENT IS ALLERGIC TO SULFA. REVIEW OF SYSTEMS: Negative except as dictated in the HPI. PHYSICAL EXAMINATION: GENERAL: A well-developed, well-nourished white female in no acute distress. VITAL SIGNS: On 04/19/2021 showed a temperature of 36.6, pulse of 74, respirations 18, blood pressure was 116/77. HEART: S1, S2, regular rhythm and rate. LUNGS: Clear to auscultation bilaterally. ABDOMEN: Nontender, nondistended. Incision was clean and dry. EXTREMITIES: No cyanosis, clubbing or edema. LABORATORY DATA: Hemoglobin on 04/19 was 10.3, hematocrit was 31.9. CONDITION ON DISCHARGE: Stable. OPERATIONS: Repeat section. DISCHARGE DIAGNOSIS: Postoperative after section. PLAN ON DISCHARGE: The patient is discharged home with instructions regarding activity, diet, followu p appointment and medications. Job ID: [id number]
== END 2021-04-19 13:00 | disposition home or self-care (01) | DRG 788 ==
LOC: OPB 12:19 → 4S2 12:20

== ENCOUNTER 2022-11-11 05:08 | Observation (INO) ==
[2022-11-11] MEDS ORDERED: FAMOTIDINE 20MG IV PUSH 20 MG/5 ML SYR IV STA (05:34)
[2022-11-11] MEDS ORDERED: GI COCKTAIL ED USE PO ONE (05:34)
--- NOTE | 2022-11-11 05:35 | Emergency Department Note ---
History of Present Illness General Chief complaint: Cardiac Assessment Stated complaint: UPPER BACK,CHEST,ABDOMINAL PAIN Time Seen by Provider: 11/11/22 05:20 History of Present Illness Maximum Pain Intensity: 8 This is a 27-year-old female that presents to the emergency department via pr ivate vehicle with complaints of "upper back, chest, abdominal pain". The patient notes that she awoke from sleep around 22:30 AM with lower chest pain, upper abdominal pain and pain into her back. She denies any trauma or injury. No nausea, vomiting, fevers or chills. No history of reflux or gastritis. No history of PE or UT. Patient notes that the pain comes in waves and she will feel short of breath with the increases of pain. Patient has a history of 3 C- sections. No history of abdominal surgeries. No pertinent past medical history. She is allergic to sulfa drugs. No preceding illness. Home Medications Medication Instructions Recorded Confirmed Type fluoxetine 10 mg capsule (Prozac) 10 mg PO DAILY 05/16/22 06/25/22 History levonorgestrel 20 mcg/24 hours (8 intrauterine 06/25/22 06/25/22 History yrs) 52 mg intrauterine device (Mirena) oxycodone-acetaminophen 5 mg-325 1 tab PO Q6H PRN pain #14 tabs 11/11/22 Rx mg tablet (Endocet) Allergies Allergy/AdvReac Type Severity Reaction Status Date / Time Sulfa (Sulfonamide Allergy Unknown Unknown Verified 06/25/22 11:43 Antibiotics) Past Med/Surg History Medical History delivery delivered No significant past medical history Surgical History S/P section x3 Family History Denies family history of Ovarian cancer Breast cancer Lung cancer Colorectal cancer Social History Smoking Status: Current some day smoker Tobacco Type: E-cigarettes / Vaping Hx Alcohol Use: No Hx Substance Use: No Preferred Language: Togolese Beliefs That Will Affect Care: None marital status: Single Current Living Situation: Significant Other Feels Safe at Home: Yes Assistive Devices: Glasses Review of Systems A total of 10 systems reviewed and were otherwise negative Physical Exam Vital Signs Vital Signs - 24 hr 11/11/22 05:14 11/11/22 05:57 11/11/22 06:34 Temperature 36.2 C L Temperature Source Temporal Artery Scan Pulse Rate 75 Pulse Rate [Apical] 72 Pulse Rate [Right Finger] Pulse Rhythm [Apical] Pulse Rhythm [Right Finger] Pulse Strength [Right Finger] Respiratory Rate 20 20 Respiratory Effort / Characteristics Non-Labored Spontaneous Non-Labored Spontaneous Respiratory Depth Normal Normal Respiratory Pattern Regular Blood Pressure 155/100 H Blood Pressure [Left Arm] 148/75 H Blood Pressure Mean 118 Blood Pressure Mean [Left Arm] 99 Blood Pressure Position [Left Arm] Sitting Pulse Oximetry 98 97 99 Oxygen Delivery Method Room Air Room Air Room Air Oxygen Flow Rate Sepsis New/Unexplained Change in Mental Status N/A Sepsis Action Taken by Nursing No Action Required 11/11/22 08:00 11/11/22 10:38 11/11/22 10:00 Temperature Temperature Source Pulse Rate 89 Pulse Rate [Apical] 73 89 Pulse Rate [Right Finger] Pulse Rhythm [Apical] Pulse Rhythm [Right Finger] Pulse Strength [Right Finger] Respiratory Rate 17 22 22 Respiratory Effort / Characteristics Non-Labored Non-Labored Respiratory Depth Normal Normal Respiratory Pattern Regular Regular Blood Pressure 136/64 Blood Pressure [Left Arm] 135/76 136/64 Blood Pressure Mean Blood Pressure Mean [Left Arm] 95 88 Blood Pressure Position [Left Arm] Pulse Oximetry 99 99 99 Oxygen Delivery Method Room Air Room Air Room Air Oxygen Flow Rate Sepsis New/Unexplained Change in Mental Status Sepsis Action Taken by Nursing 11/11/22 10:53 11/11/22 12:50 Temperature 37.2 C 36.4 C L Temperature Source Oral Temporal Artery Scan Pulse Rate Pulse Rate [Apical] 61 Pulse Rate [Right Finger] 77 Pulse Rhythm [Apical] Regular Pulse Rhythm [Right Finger] Regular Pulse Strength [Right Finger] Normal Respiratory Rate 20 18 Respiratory Effort / Characteristics Non-Labored Spontaneous Non-Labored Respiratory Depth Normal Normal Respiratory Pattern Regular Regular Blood Pressure Blood Pressure [Left Arm] 114/87 121/69 Blood Pressure Mean Blood Pressure Mean [Left Arm] 96 86 Blood Pressure Position [Left Arm] Semi-fowlers Pulse Oximetry 97 93 Oxygen Delivery Method Room Air Oxymask Oxygen Flow Rate 15 Sepsis New/Unexplained Change in Mental Status Sepsis Action Taken by Nursing VITAL SIGNS - Vital signs and nursing notes were reviewed. Stable and afebrile. GENERAL -27-year-old female appearing her stated age who is in no acute distress. Communicates well with provider and answers questions appropriately. SKIN - Without rashes. No meningeal or petechial rash. HEAD - NC/AT. EYES - PERRL with EOMI bilaterally. Sclera anicteric. EARS - No deformities of external structures noted on gross examination bilaterally. NOSE - Midline and without cyanosis. No epistaxis or purulent drainage noted. MOUTH/OROPHARYNX - Without perioral cyanosis. NECK - Neck with FROM. No nuchal rigidity. LUNGS - Chest wall symmetric without accessory muscle use, intercostals retractions, or central cyanosis. Normal vesicular breath sounds CTA B/L. No wheezes, rales, or rhonchi appreciated. CARDIAC - RRR with S1/S2. No murmur, rubs, or gallops appreciated. ABDOMEN - Abdominal contour normal without pulsations or visible masses. BS normoactive all four quadrants. No tenderness, palpable masses, hepatosplenomegaly, or ascites noted. EXTREMITIES - No clubbing or peripheral cyanosis. No pretibial edema present. +5/5 strength noted in UE/LE bilaterally. NEUROLOGIC - Cranial nerves II through XII grossly intact. Sensory intact to light touch throughout. PSYCH - A&O, and cooperates fully with examiner. Pt is very pleasant and interac ts well with examiner. Course Administered Medications Acetaminophen (Acetaminophen 325 Mg Tab) 650 mg PO Q6H PRN PRN Reason: Pain & Pre PT Stop: 12/11/22 15:00 Last Admin: 11/11/22 15:17 Dose: 650 mg Documented By: KY Lactated Ringer's (Lr) 1,000 mls @ 100 mls/hr IV .Q10H RAJESH Stop: 12/11/22 15:00 Last Infusion: 11/11/22 18:00 Dose: 100 mls/hr Documented By: Infusion: 11/11/22 17:04 Dose: 0 mls/hr Documented By: Admin: 11/11/22 15:08 Dose: 100 mls/hr Documented By: KY Ampicillin Sodium/Sulbactam Sodium 3,000 mg/ Sodium Chloride 108 mls @ 200 mls/hr IV Q6H RAJESH; Protocol Stop: 11/12/22 15:00 Last Admin: 11/11/22 21:07 Dose: 200 mls/hr Documented By: Infusion: 11/11/22 17:38 Dose: 0 mls/hr Documented By: Admin: 11/11/22 17:04 Dose: 200 mls/hr Documented By: [place] Miscellaneous (Check Scopolamine Patch Placement) 1 each N/A QS RAJESH Stop: 11/14/22 05:59 Last Admin: 11/11/22 15:18 Dose: 1 each Documented By: KY Oxycodone/Acetaminophen (Oxycodone/Acetaminophen 5mg/325mg Tab) 1 tab PO Q4H PRN PRN Reason: MODERATE Pain (4,5,6) & Pre PT Stop: 11/25/22 15:00 Last Admin: 11/11/22 18:00 Dose: 1 tab Documented By: KY Discontinued Medications Al Hydrox/Mg Hydrox/Simethicone (Gi Cocktail Ed Use) 1 dose PO ONE ONE Stop: 11/11/22 05:35 Last Admin: 11/11/22 05:49 Dose: 1 dose Documented By: ZANE Bupivacaine HCl (Bupivacaine 0.5 % 5 Mg/1 Ml Mpf 30ml Vial) Confirm Administered Dose 30 ml .ROUTE .STK-MED ONE Stop: 11/11/22 10:30 Last Admin: 11/11/22 11:54 Dose: 30 ml Documented By: MESHA Fentanyl Citrate (Fentanyl Citrate 100 Mcg/2 Ml Vial) 25 mcg IV Q5M PRN PRN Reason: PACU Use Only-Pain Stop: 11/11/22 19:05 Last Admin: 11/11/22 14:16 Dose: 25 mcg Documented By: FARHANA Famotidine (Pepcid 20mg Iv Push) 20 mg in 5 mls @ 2.5 mls/min IV NOW STA Stop: 11/11/22 05:35 Last Admin: 11/11/22 05:49 Dose: 2.5 mls/min Documented By: ZANE Ampicillin Sodium/Sulbactam Sodium 3,000 mg/ Sodium Chloride 108 mls @ 200 mls/hr IV NOW ONE; Protocol Stop: 11/11/22 11:02 Last Admin: 11/11/22 15:09 Dose: Not Given Documented By: KY Morphine Sulfate (Morphine Sulfate 4 Mg/Ml 1 Ml Carp\\Vial) 4 mg IV NOW STA Stop: 11/11/22 07:44 Last Admin: 11/11/22 08:20 Dose: 4 mg Documented By: EM Ondansetron HCl (Ondansetron Inj 2 Mg/Ml 2 Ml Vial) 4 mg IV NOW STA Stop: 11/11/22 07:44 Last Admin: 11/11/22 08:20 Dose: 4 mg Documented By: EM Scopolamine (Scopolamine 1 Mg Tdsy) 1 mg TD ONE ONE Stop: 11/11/22 11:06 Last Admin: 11/11/22 11:07 Dose: 1 mg Documented By: DAIANA Scopolamine (Scopolamine 1 Mg Tdsy) Confirm Administered Dose 1 mg TD .STK-MED ONE Stop: 11/11/22 11:08 Last Admin: 11/11/22 15:08 Dose: Not Given Documented By: KY Medical Decision Making Laboratory Data Result diagrams: 11/11/22 05:40 11/11/22 05:40 Lab Results 11/11/22 11/11/22 11/11/22 Range/Units 05:40 05:40 05:40 WBC 6.60 (4.8-10.8) K/ul RBC 5.02 (3.93-5.22) M/uL Hgb 13.9 (12.0-16.0) g/dl Hct 41.5 (34.1-44.9) % MCV 82.7 (80.0-100.0) fL MCH 27.7 (25.0-34.0) pg MCHC 33.5 (32.0-36.0) g/dL RDW Std Deviation 39.2 (36.4-46.3) fL RDW Coeff of Sanju 13.1 (11.5-14.5) % Plt Count 226 (130-400) K/uL MPV 11.3 (9.4-12.3) fL Immature Gran % (Auto) 0.5 % Neut % (Auto) 64.9 % Lymph % (Auto) 25.2 % [place] % (Auto) 6.4 % Eos % (Auto) 2.7 % Baso % (Auto) 0.3 % Neut # (Auto) 4.29 (1.4-6.5) K/uL Lymph # (Auto) 1.66 (1.2-3.4) K/uL [place] # (Auto) 0.42 (0.24-0.82) K/uL Eos # (Auto) 0.18 (0-0.50) K/uL Baso # (Auto) 0.02 (0-0.2) K/uL Immature Gran # (Auto) 0.03 H (0.00-0.02) K/uL PT 10.0 (9.0-12.0) Seconds INR 0.9 (0.9-1.1) APTT 26.4 (21.0-31.0) Seconds PTT Ratio 1.0 D-Dimer 490 (0-500) ug/L FEU Sodium 140 (136-145) mmol/L Potassium 3.7 (3.5-5.1) mmol/L Chloride 106 (98-107) mmol/L Carbon Dioxide 29 (21-32) mmol/L Anion Gap 5 (3-11) BUN 12 (6-23) mg/dl Creatinine 0.85 (0.6-1.2) mg/dl Est Cr Clr Drug Dosing 118.3 ml/min Est GFR ( Amer) 108.1 ml/min Est GFR (Non-Af Amer) 93.2 ml/min BUN/Creatinine Ratio 14.1 (10-20) Glucose 109 H (70-99(Fasting)) mg/dl Calcium 9.1 (8.5-10.1) mg/dl Magnesium 1.7 (1.7-2.4) mg/dl Total Bilirubin 0.6 (0.2-1.0) mg/dl AST 122 H (13-39) U/L ALT 153 H (7-52) U/L Alkaline Phosphatase 77 (34-104) U/L Troponin I High Sens 2.6 (0-14) pg/ml Total Protein 7.7 (6.0-8.3) gm/dl Albumin 4.4 (3.4-5.0) gm/dl Globulin 3.3 (2.5-4.0) gm/dl Albumin/Globulin Ratio 1.3 (0.9-2) Lipase 32 (11-82) U/L HCG, Qual (Negative) Urine Color Urine Appearance (Clear) Urine pH (4.5-7.5) Ur Specific [place] (1.000-1.030) Urine Protein (Negative) Urine Glucose (UA) (Negative) Urine Ketones (Negative) Urine Blood (Negative) Urine Nitrite (Negative) Urine Bilirubin (Negative) Urine Urobilinogen (Negative) Ur Leukocyte Esterase (Negative) Urine WBC (Auto) (0-5) /hpf Urine RBC (Auto) (0-4) /hpf U Hyaline Cast (Auto) (0-5) /lpf U Epithel Cells (Auto) (0-5) /lpf Urine Bacteria (Auto) (Negative) SARS-CoV-2 (PCR) (Negative) Influenza Type A (PCR) (Neg) Influenza Type B (PCR) (Neg) RSV (RT-PCR) (Neg) 11/11/22 11/11/22 11/11/22 Range/Units 05:40 05:40 05:50 WBC (4.8-10.8) K/ul RBC (3.93-5.22) M/uL Hgb (12.0-16.0) g/dl Hct (34.1-44.9) % MCV (80.0-100.0) fL MCH (25.0-34.0) pg MCHC (32.0-36.0) g/dL RDW Std Deviation (36.4-46.3) fL RDW Coeff of Sanju (11.5-14.5) % Plt Count (130-400) K/uL MPV (9.4-12.3) fL Immature Gran % (Auto) % Neut % (Auto) % Lymph % (Auto) % [place] % (Auto) % Eos % (Auto) % Baso % (Auto) % Neut # (Auto) (1.4-6.5) K/uL Lymph # (Auto) (1.2-3.4) K/uL [place] # (Auto) (0.24-0.82) K/uL Eos # (Auto) (0-0.50) K/uL Baso # (Auto) (0-0.2) K/uL Immature Gran # (Auto) (0.00-0.02) K/uL PT (9.0-12.0) Seconds INR (0.9-1.1) APTT (21.0-31.0) Seconds PTT Ratio D-Dimer (0-500) ug/L FEU Sodium (136-145) mmol/L Potassium (3.5-5.1) mmol/L Chloride (98-107) mmol/L Carbon Dioxide (21-32) mmol/L Anion Gap (3-11) BUN (6-23) mg/dl Creatinine (0.6-1.2) mg/dl Est Cr Clr Drug Dosing ml/min Est GFR ( Amer) ml/min Est GFR (Non-Af Amer) ml/min BUN/Creatinine Ratio (10-20) Glucose (70-99(Fasting)) mg/dl Calcium (8.5-10.1) mg/dl Magnesium (1.7-2.4) mg/dl Total Bilirubin (0.2-1.0) mg/dl AST (13-39) U/L ALT (7-52) U/L Alkaline Phosphatase (34-104) U/L Troponin I High Sens (0-14) pg/ml Total Protein (6.0-8.3) gm/dl Albumin (3.4-5.0) gm/dl Globulin (2.5-4.0) gm/dl Albumin/Globulin Ratio (0.9-2) Lipase (11-82) U/L HCG, Qual Negative (Negative) Urine Color Yellow Urine Appearance Turbid A (Clear) Urine pH 7.0 (4.5-7.5) Ur Specific [place] 1.023 (1.000-1.030) Urine Protein Negative (Negative) Urine Glucose (UA) Negative (Negative) Urine Ketones Negative (Negative) Urine Blood 2+ H (Negative) Urine Nitrite Negative (Negative) Urine Bilirubin Negative (Negative) Urine Urobilinogen Negative (Negative) Ur Leukocyte Esterase Negative (Negative) Urine WBC (Auto) 1-5 (0-5) /hpf Urine RBC (Auto) 0-4 (0-4) /hpf U Hyaline Cast (Auto) 1-5 (0-5) /lpf U Epithel Cells (Auto) >30 H (0-5) /lpf Urine Bacteria (Auto) Negative (Negative) SARS-CoV-2 (PCR) NEGATIVE (Negative) Influenza Type A (PCR) Negative (Neg) Influenza Type B (PCR) Negative (Neg) RSV (RT-PCR) Negative (Neg) Imaging Data My Impression: Chest x-ray: No acute process compared to previous. Radiologist's Impression: Chest X-Ray 11/11/22 05:33 XR chest 1V portable HISTORY: 27 years-old Female chest pain . Acute chest and abdominal pain COMPARISON: 11/17/2018 TECHNIQUE: AP view of the chest FINDINGS: Cardiomediastinal and hilar silhouettes are within normal limits. No pneumothorax, pleural effusion, airspace consolidation or overt pulmonary edema. Bones of the chest appear grossly intact. IMPRESSION: No acute process. ACT 112: Negative or not required by law. The above report was generated using voice recognition software. It may contain grammatical, syntax or spelling errors. Electronically signed by: Elmer Michael M.D. 11/11/2022 6:35 AM Gallbladder Ultrasound 11/11/22 05:33 US gallbladder HISTORY: 27 years-old Female epigastric pain/chest pain acute right upper quadrant abdominal pain COMPARISON: None TECHNIQUE: Multiple real-time sonographic images of the abdominal right upper quadrant were obtained assessing grayscale appearance and color flow FINDINGS: Study is limited secondary to patient body habitus. The pancreas is mostly obscured by bowel gas. The liver measures up to 19.6 cm in length and is diffusely echogenic. No hepatic mass identified. The gallbladder is distended measuring up to 12 cm in length. Edematous gallbladder wall thickening measures up to 4.5 mm. There are several small echogenic nonshadowing foci noted within the dependent gallbladder. No pericholecystic fluid identified. The sonographic Mac sign was unable to be assessed secondary to pain medication administered to the patient. Normal common bile duct, 4 mm. The imaged right kidney is unremarkable without hydronephrosis. IMPRESSION: 1. Distended gallbladder with wall thickening. Echogenic nonshadowing foci within the gallbladder lumen may represent tumefactive sludge versus cholelithiasis. No pericholecystic fluid identified and the sonographic Mac sign was unable to be assessed. Findings are equivocal for acute cholecystitis. Nuclear medicine hepatobiliary scan may be considered. 2. No biliary ductal dilation. ACT 112: Negative or not required by law. The above report was generated using voice recognition software. It may contain grammatical, syntax or spelling errors. Electronically signed by: Elmer Michael M.D. 11/11/2022 7:04 AM [facility] Narrative Patient was seen and evaluated as above in room A03. Review was performed of nursing notes and vital signs. After obtaining a thorough history and physical examination the above work up was performed. Patient presents to us today for evaluation of upper abdominal pain/chest pain/upper back pain. She clinically appears well and nontoxic. Vital signs stable. EKG was obtained on arrival and reveals sinus rhythm at a rate of 68 bpm. QTc 408. QRS 82. No ST elevation. Options of care were discussed with the patient. IV access was established. Labs were drawn. Patient was medicated with a GI cocktail and IV Pepcid initially. Labs reveal no leukocytosis or concerning anemia. D-dimer normal. Coags normal. No emergent metabolic disturbance other than transaminitis noted with AST at 122 and ALT at 153 which appears to be new compared to previous. Troponin is negative. Lipase normal. hCG negative. Urinalysis does not suggest infection. COVID, and influenza testing negative. Chest x-ray negative. Ultrasound of the gallbladder was abnormal and equivocal for acute cholecystitis. Patient reevaluated and pain was continuing. IV morphine and Zofran was ordered. Case then discussed with the general surgeon, Dr. Martino. Case signed out to Noni Nava PA-C pending evaluation by general surgery service. Please refer to further documentation regarding her stay. GCS: 15 In the evaluation and treatment of this patient the following differential diagnosis entertained: UT, PE, pericarditis, costochondritis, dissection, pneumothorax, acute cholecystitis, pancreatitis, gastritis, bowel obstruction, ascending cholangitis, among others. Impression & Plan Abdominal pain, epigastric, Transaminitis, Abnormal gallbladder ultrasound Discharge Plan Visit Data Chief Complaint: Cardiac Assessment Stated Complaint: UPPER BACK,CHEST,ABDOMINAL PAIN ED Provider: Maged Davey ED Midlevel Provider: Noni Nava Discharge Problem: Abdominal pain, epigastric, Transaminitis, Abnormal gallbladder ultrasound Patient Disposition: Admitted As Inpatient Condition: Good Discharge Instructions Interventions: ED Discharge Assessment Last Done: 11/11/22 10:38
[2022-11-11 05:59] LABS: Basophils # (auto) 0.02 K/uL (0-0.2); Basophils % (auto) 0.3 %; Eosinophils # (auto) 0.18 K/uL (0-0.50); Eosinophils % (auto) 2.7 %; Hematocrit (blood only) 41.5 % (34.1-44.9); Hemoglobin 13.9 g/dl (12.0-16.0); Immature Granulocytes # (auto) 0.03 K/uL (0.00-0.02); Immature Granulocytes % (auto) 0.5 %; Lymphocytes # (auto) 1.66 K/uL (1.2-3.4); Lymphocytes % (auto) 25.2 %; Mean Corpuscular Hemoglobin 27.7 pg (25.0-34.0); Mean Corpuscular Hgb Conc 33.5 g/dL (32.0-36.0); Mean Corpuscular Volume 82.7 fL (80.0-100.0); Mean Platelet Volume 11.3 fL (9.4-12.3); Monocytes # (auto) 0.42 K/uL (0.24-0.82); Monocytes % (auto) 6.4 %; Neutrophils # (auto) 4.29 K/uL (1.4-6.5); Neutrophils % (auto) 64.9 %; Platelet Count 226 K/uL (130-400); RDW Coefficient of Variation 13.1 % (11.5-14.5); RDW Standard Deviation 39.2 fL (36.4-46.3); Red Blood Count 5.02 M/uL (3.93-5.22)
[2022-11-11 06:25] LABS: Troponin I High Sensitivity 2.6 pg/ml (0-14)
[2022-11-11 06:27] LABS: Albumin Globulin Ratio 1.3 (0.9-2); Albumin Level 4.4 gm/dl (3.4-5.0); Appearance Urine Turbid (Clear); BUN Creatinine Ratio 14.1 (10-20); Bacteria Urine Automated Negative (Negative); Bilirubin Urine Negative (Negative); Bilirubin,Total 0.6 mg/dl (0.2-1.0); Blood Urine 2+ (Negative); Calcium 9.1 mg/dl (8.5-10.1); Color Urine Yellow; Creatinine Clr Calc Pharmacy 118.3 ml/min; Epithelial Cell Urine Auto >30 /lpf (0-5); Est GFR (African American) 108.1 ml/min; Est GFR (Non-African American) 93.2 ml/min; Globulin 3.3 gm/dl (2.5-4.0); Glucose Urine UA Negative (Negative); Ketones Urine Negative (Negative); Leukocyte Esterase Urine Negative (Negative); Magnesium 1.7 mg/dl (1.7-2.4); Nitrite Urine Negative (Negative); Potassium 3.7 mmol/L (3.5-5.1); Protein Urine Negative (Negative); RBC Urine Automated 0-4 /hpf (0-4); Specific Gravity Urine 1.023 (1.000-1.030); Total Protein 7.7 gm/dl (6.0-8.3); Urobilinogen Urine Negative (Negative)
[2022-11-11 06:28] LABS: D Dimer 490 ug/L FEU (0-500); INR 0.9 (0.9-1.1); Partial Thromboplastin Time 26.4 Seconds (21.0-31.0)
--- NOTE | 2022-11-11 06:38 | XRay Report ---
XR chest 1V portable HISTORY: 27 years-old Female chest pain . Acute chest and abdominal pain COMPARISON: 11/17/2018 TECHNIQUE: AP view of the chest FINDINGS: Cardiomediastinal and hilar silhouettes are within normal limits. No pneumothorax, pleural effusion, airspace consolidation or overt pulmonary edema. Bones of the chest appear grossly intact. IMPRESSION: No acute process. ACT 112: Negative or not required by law. The above report was generated using voice recognition software. It may contain grammatical, syntax o r spelling errors. Electronically signed by: Elmer Michael M.D. 11/11/2022 6:35 AM
[2022-11-11 06:46] LABS: Influenza A virus by PCR Negative (Neg); Influenza B virus by PCR Negative (Neg); RSV by PCR Negative (Neg); SARS CoV2 RNA(COVID-19) Ceph NEGATIVE (Negative)
[2022-11-11 06:53] LABS: Pregnancy Test, Serum Negative (Negative)
--- NOTE | 2022-11-11 07:07 | Ultrasound Report ---
US gallbladder HISTORY: 27 years-old Female epigastric pain/chest pain acute right upper quadrant abdominal pain COMPARISON: None TECHNIQUE: Multiple real-time sonographic images of the abdominal right upper quadrant were obtained assessing grayscale appearance and color flow FINDINGS: Study is limited secondary to patient body habitus. The pancreas is mostly obscured by bowel gas. The liver measures up to 19.6 cm in length and is diffusely echogenic. No hepatic mass identified. The gallbladder is distended measuring up to 12 cm in length. Edematous gallbladder wall thickening m easures up to 4.5 mm. There are several small echogenic nonshadowing foci noted within the dependent gallbladder. No pericholecystic fluid identified. The sonographic Mac sign was unable to be assess ed secondary to pain medication administered to the patient. Normal common bile duct, 4 mm. The imaged right kidney is unremarkable without hydronephrosis. IMPRESSION: 1. Distended gallbladder with wall thickening. Echogenic nonshadowing foci within the gallbladder lum en may represent tumefactive sludge versus cholelithiasis. No pericholecystic fluid identified and th e sonographic Mac sign was unable to be assessed. Findings are equivocal for acute cholecystitis. Nuclear medicine hepatobiliary scan may be considered. 2. No biliary ductal dilation. ACT 112: Negative or not required by law. The above report was generated using voice recognition software. It may contain grammatical, syntax o r spelling errors. Electronically signed by: Elmer Michael M.D. 11/11/2022 7:04 AM
[2022-11-11] MEDS ORDERED: ONDANSETRON INJ 2 MG/ML 2 ML VIAL IV STA (07:43)
[2022-11-11] MEDS ORDERED: MoRPHine SULFATE 4 MG/ML 1 ML CARP\\VIAL IV STA (07:43)
--- NOTE | 2022-11-11 09:57 | Surgery Consultation ---
Date of Consultation November 11, 2022 Assessment & Plan (1) Acute cholecystitis due to biliary calculus: 27 yr old woman with persistent epigastric pain, US showing findings c/w acute cholecystitis. AST/ ALT mildly elevated but t. bili normal, CBD normal size. Low suspicion for common duct stone. Discussed laparoscopic cholecystectomy with risks of bleeding, infection, conversion to open, retained stone or bile leak requiring ercp, postop diarrhea, intolerance to foods. Consent signed. For OR today. Expected recovery time of 1-2 weeks reviewed. History of Present Illness Reason for Consultation: abdominal pain, epigastric Requesting Physician: RAMBO White History of Present Illness 27 yr old woman who presents with sharp, stabbing abdominal pain started around 2-2:30. Located in mid upper back, epigastric, radiates to sides. No radiation to shoulders. Associated with nausea , no vomiting. No fevers/ chills. No change in bowel habits. Tried a chewy mint this am as thought she had heartburn, around 2:30 pm. Family history of gallbladder disease in mother and sisters. No jaundice, change in color of stool. Had buffalo chicken dip prior to it occurring. No similar episodes in the past. Pain was 10/10 in intensity, has now been relieved by morphine which was last taken about 1 hour ago. Allergies Allergy/AdvReac Type Severity Reaction Status Date / Time Sulfa (Sulfonamide Allergy Unknown Unknown Verified 06/25/22 11:43 Antibiotics) Home Medications Medication Instructions Recorded Confirmed Type fluoxetine 10 mg capsule (Prozac) 10 mg PO DAILY 05/16/22 06/25/22 History levonorgestrel 20 mcg/24 hours (8 intrauterine 06/25/22 06/25/22 History yrs) 52 mg intrauterine device (Mirena) Patient History Medical History delivery delivered No significant past medical history Surgical History S/P section x3 Family History Denies family history of Ovarian cancer Breast cancer Lung cancer Colorectal cancer Social History Smoking Status: Current some day smoker Tobacco Type: E-cigarettes / Vaping Hx Alcohol Use: No Hx Substance Use: No Preferred Language: Bel[place] Beliefs That Will Affect Care: None marital status: Single Current Living Situation: Significant Other Feels Safe at Home: Yes Assistive Devices: Glasses Review of Systems Review of Systems: All systems reviewed & are unremarkable except as noted in HPI & below Physical Exam Constitutional: WD/WN, vitals as above Eyes: PERRL, conjunctivae normal, anicteric sclerae ENMT: external ear and nose normal, oropharynx normal Respiratory: normal respiratory effort, lungs clear to auscultation Cardiovascular: RRR, no murmur, no edema Gastrointestinal (Abdomen): Inspection/Auscultation: abdomen normal to inspection and normal bowel sounds; abdomen not distended Percussion/Palpation: + abdomen tender (epigastric, moderate, no Muprhy's sign) and abdomen soft; no guarding Musculoskeletal: Extremities: extremities normal to inspection Neurologic: awake; no focal motor deficits Psychiatric: A+Ox3, euthymic affect Results & Data ([facility]) Vital Signs (Past 12 Hours) Vital Signs Temp Pulse Pulse Resp BP BP Pulse Ox 11/11/22 08:00 73 17 135/76 99 11/11/22 06:34 72 20 148/75 H 99 11/11/22 05:57 97 11/11/22 05:14 36.2 C L 75 20 155/100 H 98 O2 Del Method 11/11/22 08:00 Room Air 11/11/22 06:34 Room Air 11/11/22 05:57 Room Air 11/11/22 05:14 Room Air Laboratory Results 11/11/22 11/11/22 11/11/22 Range/Units 05:50 05:40 05:40 WBC (4.8-10.8) K/ul RBC (3.93-5.22) M/uL Hgb (12.0-16.0) g/dl Hct (34.1-44.9) % MCV (80.0-100.0) fL MCH (25.0-34.0) pg MCHC (32.0-36.0) g/dL RDW Std Deviation (36.4-46.3) fL RDW Coeff of Sanju (11.5-14.5) % Plt Count (130-400) K/uL MPV (9.4-12.3) fL Immature Gran % (Auto) % Neut % (Auto) % Lymph % (Auto) % [place] % (Auto) % Eos % (Auto) % Baso % (Auto) % Neut # (Auto) (1.4-6.5) K/uL Lymph # (Auto) (1.2-3.4) K/uL [place] # (Auto) (0.24-0.82) K/uL Eos # (Auto) (0-0.50) K/uL Baso # (Auto) (0-0.2) K/uL Immature Gran # (Auto) (0.00-0.02) K/uL PT (9.0-12.0) Seconds INR (0.9-1.1) APTT (21.0-31.0) Seconds PTT Ratio D-Dimer (0-500) ug/L FEU Sodium (136-145) mmol/L Potassium (3.5-5.1) mmol/L Chloride (98-107) mmol/L Carbon Dioxide (21-32) mmol/L Anion Gap (3-11) BUN (6-23) mg/dl Creatinine (0.6-1.2) mg/dl Est Cr Clr Drug Dosing ml/min Est GFR ( Amer) ml/min Est GFR (Non-Af Amer) ml/min BUN/Creatinine Ratio (10-20) Glucose (70-99(Fasting)) mg/dl Calcium (8.5-10.1) mg/dl Magnesium (1.7-2.4) mg/dl Total Bilirubin (0.2-1.0) mg/dl AST (13-39) U/L ALT (7-52) U/L Alkaline Phosphatase (34-104) U/L Troponin I High Sens (0-14) pg/ml Total Protein (6.0-8.3) gm/dl Albumin (3.4-5.0) gm/dl Globulin (2.5-4.0) gm/dl Albumin/Globulin Ratio (0.9-2) Lipase (11-82) U/L HCG, Qual Negative (Negative) Urine Color Yellow Urine Appearance Turbid A (Clear) Urine pH 7.0 (4.5-7.5) Ur Specific Addison 1.023 (1.000-1.030) Urine Protein Negative (Negative) Urine Glucose (UA) Negative (Negative) Urine Ketones Negative (Negative) Urine Blood 2+ H (Negative) Urine Nitrite Negative (Negative) Urine Bilirubin Negative (Negative) Urine Urobilinogen Negative (Negative) Ur Leukocyte Esterase Negative (Negative) Urine WBC (Auto) 1-5 (0-5) /hpf Urine RBC (Auto) 0-4 (0-4) /hpf U Hyaline Cast (Auto) 1-5 (0-5) /lpf U Epithel Cells (Auto) >30 H (0-5) /lpf Urine Bacteria (Auto) Negative (Negative) SARS-CoV-2 (PCR) NEGATIVE (Negative) Influenza Type A (PCR) Negative (Neg) Influenza Type B (PCR) Negative (Neg) RSV (RT-PCR) Negative (Neg) 11/11/22 11/11/22 11/11/22 Range/Units 05:40 05:40 05:40 WBC 6.60 (4.8-10.8) K/ul RBC 5.02 (3.93-5.22) M/uL Hgb 13.9 (12.0-16.0) g/dl Hct 41.5 (34.1-44.9) % MCV 82.7 (80.0-100.0) fL MCH 27.7 (25.0-34.0) pg MCHC 33.5 (32.0-36.0) g/dL RDW Std Deviation 39.2 (36.4-46.3) fL RDW Coeff of Sanju 13.1 (11.5-14.5) % Plt Count 226 (130-400) K/uL MPV 11.3 (9.4-12.3) fL Immature Gran % (Auto) 0.5 % Neut % (Auto) 64.9 % Lymph % (Auto) 25.2 % [place] % (Auto) 6.4 % Eos % (Auto) 2.7 % Baso % (Auto) 0.3 % Neut # (Auto) 4.29 (1.4-6.5) K/uL Lymph # (Auto) 1.66 (1.2-3.4) K/uL [place] # (Auto) 0.42 (0.24-0.82) K/uL Eos # (Auto) 0.18 (0-0.50) K/uL Baso # (Auto) 0.02 (0-0.2) K/uL Immature Gran # (Auto) 0.03 H (0.00-0.02) K/uL PT 10.0 (9.0-12.0) Seconds INR 0.9 (0.9-1.1) APTT 26.4 (21.0-31.0) Seconds PTT Ratio 1.0 D-Dimer 490 (0-500) ug/L FEU Sodium 140 (136-145) mmol/L Potassium 3.7 (3.5-5.1) mmol/L Chloride 106 (98-107) mmol/L Carbon Dioxide 29 (21-32) mmol/L Anion Gap 5 (3-11) BUN 12 (6-23) mg/dl Creatinine 0.85 (0.6-1.2) mg/dl Est Cr Clr Drug Dosing 118.3 ml/min Est GFR ( Amer) 108.1 ml/min Est GFR (Non-Af Amer) 93.2 ml/min BUN/Creatinine Ratio 14.1 (10-20) Glucose 109 H (70-99(Fasting)) mg/dl Calcium 9.1 (8.5-10.1) mg/dl Magnesium 1.7 (1.7-2.4) mg/dl Total Bilirubin 0.6 (0.2-1.0) mg/dl AST 122 H (13-39) U/L ALT 153 H (7-52) U/L Alkaline Phosphatase 77 (34-104) U/L Troponin I High Sens 2.6 (0-14) pg/ml Total Protein 7.7 (6.0-8.3) gm/dl Albumin 4.4 (3.4-5.0) gm/dl Globulin 3.3 (2.5-4.0) gm/dl Albumin/Globulin Ratio 1.3 (0.9-2) Lipase 32 (11-82) U/L HCG, Qual (Negative) Urine Color Urine Appearance (Clear) Urine pH (4.5-7.5) Ur Specific [place] (1.000-1.030) Urine Protein (Negative) Urine Glucose (UA) (Negative) Urine Ketones (Negative) Urine Blood (Negative) Urine Nitrite (Negative) Urine Bilirubin (Negative) Urine Urobilinogen (Negative) Ur Leukocyte Esterase (Negative) Urine WBC (Auto) (0-5) /hpf Urine RBC (Auto) (0-4) /hpf U Hyaline Cast (Auto) (0-5) /lpf U Epithel Cells (Auto) (0-5) /lpf Urine Bacteria (Auto) (Negative) SARS-CoV-2 (PCR) (Negative) Influenza Type A (PCR) (Neg) Influenza Type B (PCR) (Neg) RSV (RT-PCR) (Neg) Diagnostic Findings US gallbladder HISTORY: 27 years-old Female epigastric pain/chest pain acute right upper quadrant abdominal pain COMPARISON: None TECHNIQUE: Multiple real-time sonographic images of the abdominal right upper quadrant were obtained assessing grayscale appearance and color flow FINDINGS: Study is limited secondary to patient body habitus. The pancreas is mostly obscured by bowel gas. The liver measures up to 19.6 cm in length and is diffusely echogenic. No hepatic mass identified. The gallbladder is distended measuring up to 12 cm in length. Edematous gallbladder wall thickening measures up to 4.5 mm. There are several small echogenic nonshadowing foci noted within the dependent gallbladder. No pericholecystic fluid identified. The sonographic Mac sign was unable to be assessed secondary to pain medication administered to the patient. Normal common bile duct, 4 mm. The imaged right kidney is unremarkable without hydronephrosis. IMPRESSION: 1. Distended gallbladder with wall thickening. Echogenic nonshadowing foci within the gallbladder lumen may represent tumefactive sludge versus cholelithiasis. No pericholecystic fluid identified and the sonographic Mac sign was unable to be assessed. Findings are equivocal for acute cholecystitis. Nuclear medicine hepatobiliary scan may be considered. 2. No biliary ductal dilation.
--- NOTE | 2022-11-11 10:17 | Anesthesiology Consultation ---
Date of Service November 11, 2022 Assessment & Plan Chart Review Chart Review: Acceptable Risk for Surgery and Patient NOT seen in Pre Admission Testing Consults Requested none History Surgery Operation Date: 11/11/22 10:10 Proposed Procedures p Laparoscopic Cholecystectomy - Hannah Martino MD Height/Weight Height: 5 ft 3 in Weight: 111.5 kg Allergies Allergy/AdvReac Type Severity Reaction Status Date / Time Sulfa (Sulfonamide Allergy Unknown Unknown Verified 06/25/22 11:43 Antibiotics) Medications Home Medications Medication Instructions Recorded Confirmed Last Taken fluoxetine 10 mg capsule (Prozac) 10 mg PO DAILY 05/16/22 06/25/22 Unknown levonorgestrel 20 mcg/24 hours (8 intrauterine 06/25/22 06/25/22 Unknown yrs) 52 mg intrauterine device (Mirena) Past Medical History Medical History delivery delivered No significant past medical history Past Family History Family History Denies family history of Ovarian cancer Breast cancer Lung cancer Colorectal cancer Past Surgical History Surgical History S/P section x3 Social History Smoking Status: Current some day smoker Hx Alcohol Use: No Hx Substance Use: No Physical Exam Vital Signs Last Vital Signs Temp 97.2 F L 11/11/22 05:14 Pulse 73 11/11/22 08:00 Resp 17 11/11/22 08:00 BP 135/76 11/11/22 08:00 Pulse Ox 99 11/11/22 08:00 O2 Del Method 11/11/22 08:00 Testing Laboratory Results 11/11/22 05:40 11/11/22 05:40 PT 10.0 Seconds (9.0-12.0) 11/11/22 05:40 INR 0.9 (0.9-1.1) 11/11/22 05:40 APTT 26.4 Seconds (21.0-31.0) 11/11/22 05:40 Urine Color Yellow 11/11/22 05:40 Urine Appearance Turbid (Clear) A 11/11/22 05:40 Urine pH 7.0 (4.5-7.5) 11/11/22 05:40 Ur Specific [place] 1.023 (1.000-1.030) 11/11/22 05:40 Urine Protein Negative (Negative) 11/11/22 05:40 Urine Glucose (UA) Negative (Negative) 11/11/22 05:40 Urine Ketones Negative (Negative) 11/11/22 05:40 Urine Nitrite Negative (Negative) 11/11/22 05:40 Ur Leukocyte Esterase Negative (Negative) 11/11/22 05:40 Urine WBC (Auto) 1-5 /hpf (0-5) 11/11/22 05:40 Urine RBC (Auto) 0-4 /hpf (0-4) 11/11/22 05:40 U Hyaline Cast (Auto) 1-5 /lpf (0-5) 11/11/22 05:40 U Epithel Cells (Auto) >30 /lpf (0-5) H 11/11/22 05:40 Urine Bacteria (Auto) Negative (Negative) 11/11/22 05:40
[2022-11-11] MEDS ORDERED: LIDOCAINE 2% 2 ML VIAL/AMP(20MG/ML) INFIL ONE (10:27)
[2022-11-11] MEDS ORDERED: MIDAZOLAM HCL 1 MG/ML 2ML VIAL ONE (10:27)
[2022-11-11] MEDS ORDERED: GLYCOPYRROLATE 0.2 MG/ML VIAL ONE ×2 (10:27→12:26)
[2022-11-11] MEDS ORDERED: DEXAMETHASONE SOD INJ 4 MG/ML VIAL ONE (10:27)
[2022-11-11] MEDS ORDERED: fentaNYL citrate 100 MCG/2 ML VIAL ONE ×2 (10:27→11:54)
[2022-11-11] MEDS ORDERED: ONDANSETRON INJ 2 MG/ML 2 ML VIAL ONE ×2 (10:27→11:49)
[2022-11-11] MEDS ORDERED: NEOSTIGMINE METHYLSULFATE 1 MG/ML 10ML VIAL ONE (10:27)
[2022-11-11] MEDS ORDERED: PROPOFOL IV EMULSION 10 MG/ML 20 ML VIAL IV ONE (10:27)
[2022-11-11] MEDS ORDERED: BUPIVACAINE 0.5 % 5 MG/1 ML MPF 30ML VIAL ONE (10:29)
[2022-11-11] MEDS ORDERED: ROCURONIUM BROMIDE 10 MG/ML 5 ML VIAL IV ONE (10:30)
[2022-11-11] MEDS ORDERED: AMPICILLIN/SULBACTAM SOD 3,000 MG in 0.9 % SODIUM CHLORIDE 100 ML IV ONE (10:30)
[2022-11-11] MEDS ORDERED: LARYING-O-JET KIT (LTA) ONE (10:30)
[2022-11-11] MEDS ORDERED: ONDANSETRON INJ 2 MG/ML 2 ML VIAL IV PRN ×2 (11:05→15:01)
[2022-11-11] MEDS ORDERED: fentaNYL citrate 100 MCG/2 ML VIAL IV PRN (11:05)
[2022-11-11] MEDS ORDERED: ATROPINE SULFATE 0.1 MG/ML 10ML SYR IV PRN (11:05)
[2022-11-11] MEDS ORDERED: ePHEDrine sulfate 50 MG/ML AMP IV PRN (11:05)
[2022-11-11] MEDS ORDERED: SCOPOLAMINE 1 MG TDSY TD ONE ×2 (11:05→11:07)
--- NOTE | 2022-11-11 11:24 | Emergency Department Note ---
ED Visit Note This patient was signed out to me at change of shift by Reynaldo Elliott PA-C. At that time, she was awaiting evaluation by general surgery. General surgery did arrive to evaluate the patient in the emergency department and elected to treat her operatively with cholecystectomy. Please see their note for further course and disposition. .
[2022-11-11] MEDS ORDERED: KETOROLAC 30 MG/ML VIAL ONE (12:26)
--- NOTE | 2022-11-11 12:46 | Operative Report ---
Post Operative Report Pre & Post Diagnosis Operation Date: 11/11/22 10:10 Pre-Op Diagnosis: Acute cholecystitis due to biliary calculus. Post-Op Diagnosis: Acute cholecystitis due to biliary calculus. I identified the patient and participated in the time-out.: Yes Procedure Operation Date: 11/11/22 10:10 Actual Procedures p Laparoscopic Cholecystectomy - Hannah Martino MD Surgeon Hannah Martino MD Office Mover none Estimated Blood Loss 5 Findings Consistent with Post-Op Diagnosis distended gallbladder with edema of wall c/w acute cholecystitis Fluids 1000 cc Specimens gallbladder and contents Drains none Anesthesia Type General Complications none Disposition Accompanied Patient To Recovery: No Disposition: Recovery Room Indications 27 yr old woman with acute cholecystitis. AST/ ALT mildly elevated; bilirubin normal, common duct normal. Consented for laparoscopic cholecystectomy. Description of Procedure The patient received Unasyn preoperatively. After the induction of general endotracheal anesthesia she was placed on sequential compression devices. She was positioned with her arms out and in Trendelenburg. Her abdomen was sterilely prepped and draped. After timeout, a supraumbilical incision was made and a Veress needle was placed into the peritoneal cavity. This was tested with the saline drop test. Initial pressure was 5 mmHg and this was taken to 15 mmHg. A 5 mm trocar was placed with the camera through the trocar site. The patient's position was switched to reverse Trendelenburg and airplane to the left. 3 additional trochars were placed under direct vision. A 5 mm in the right upper quadrant. A second 5 mm in the right lateral abdomen. And an 11 mm in the epigastric region. The gallbladder was noted to be distended. This was grasped and retracted over the edge of the liver. Dissection was begun at the triangle of Ty and the cystic duct and cystic artery identified. The gallbladder was triangulated on the cystic duct. Critical views were seen anteriorly and posteriorly. The cystic duct was doubly clipped on the remaining side singly clipped on the gallbladder side and divided. The cystic artery was similarly clipped and divided. The gallbladder was dissected off the liver bed without difficulty. It was placed in an Endobag and removed through the epigastric incision. The abdomen was irrigated and suctioned until the effluent was clear. Hemostasis was noted to be present. The trochars were removed. 30 cc of half percent Marcaine had been used for local anesthesia throughout the procedure. The epigastric incision was closed with 0 Vicryl stitches placed anteriorly. The skin of all 4 incisions closed with running subcuticular 4-0 Vicryl sutures. Steri-Strips and sterile dressings were applied. She was awakened and taken to recovery in stable condition. I attest to the content of the Intraoperative Record and any orders documented therein. Any exceptions are noted below.
--- NOTE | 2022-11-11 13:33 | Anesthesiology Progress Note ---
Date of Service November 11, 2022 Anesthesia Post Procedure Vital Signs Vital Signs: Temp Pulse Pulse Pulse Resp BP BP 11/11/22 13:30 36.1 C L 84 18 135/77 11/11/22 13:20 84 17 126/80 11/11/22 13:10 82 16 126/80 11/11/22 13:00 58 L 13 118/69 11/11/22 12:50 36.4 C L 61 18 121/69 11/11/22 10:53 37.2 C 77 20 114/87 11/11/22 10:00 89 22 136/64 11/11/22 10:38 89 22 136/64 11/11/22 08:00 73 17 135/76 11/11/22 06:34 72 20 148/75 H 11/11/22 05:57 11/11/22 05:14 36.2 C L 75 20 155/100 H Pulse Ox O2 Del Method O2 Flow Rate 11/11/22 13:30 94 Room Air 11/11/22 13:20 93 Room Air 11/11/22 13:10 98 Oxymask 15 11/11/22 13:00 95 Oxymask 15 11/11/22 12:50 93 Oxymask 15 11/11/22 10:53 97 Room Air 11/11/22 10:00 99 Room Air 11/11/22 10:38 99 Room Air 11/11/22 08:00 99 Room Air 11/11/22 06:34 99 Room Air 11/11/22 05:57 97 Room Air 11/11/22 05:14 98 Room Air Pain Intensity Medial Abdomen: Pain Intensity: 3 Transfer of Care Handoff Completed per policy Notes Mental Status: alert / awake / arousable Patient Amnestic to Procedure: Yes Nausea / Vomiting: adequately controlled Pain: adequately controlled Airway Patency, RR, SpO2: stable & adequate BP & HR: stable & adequate Hydration State: stable & adequate Anesthetic Complications: no major complications apparent
[2022-11-11] MEDS ORDERED: MoRPHine SULFATE 4 MG/ML 1 ML CARP\\VIAL IV PRN (15:01)
[2022-11-11] MEDS ORDERED: MoRPHine SULFATE 2 MG/ML CARP IV PRN (15:01)
[2022-11-11] MEDS ORDERED: oxyCODONE/ACETAMINOPHEN 5mg/325mg TAB PO PRN ×2 (15:01)
[2022-11-11] MEDS: LACTATED RINGER'S 1,000 ML IV SCH (15:08)
[2022-11-11] MEDS: ACETAMINOPHEN 325 MG TAB PO PRN (15:17)
[2022-11-11] MEDS: CHECK SCOPOLAMINE PATCH PLACEMENT SCH ×2 (15:18→23:15)
[2022-11-11] MEDS: AMPICILLIN/SULBACTAM SOD 3,000 MG in 0.9 % SODIUM CHLORIDE 100 ML IV SCH ×2 (17:04→21:07)
--- NOTE | 2022-11-11 19:02 | Electrocardiogram Report ---
Test Reason : Blood Pressure : / mmHG Vent. Rate : 068 BPM Atrial Rate : 068 BPM P-R Int : 170 ms QRS Dur : 082 ms QT Int : 384 ms P-R-T Axes : 049 052 050 degrees QTc Int : 408 ms Sinus rhythm with marked sinus arrhythmia Otherwise normal ECG No previous ECGs available Confirmed by Jerry Aggarwal ([id number]) on 11/11/2022 7:02:18 PM Referred By: REFERRED SELF Confirmed By:Delfin Aggarwal
[2022-11-12] MEDS: LACTATED RINGER'S 1,000 ML IV SCH ×2 (02:04→09:36)
[2022-11-12] MEDS: AMPICILLIN/SULBACTAM SOD 3,000 MG in 0.9 % SODIUM CHLORIDE 100 ML IV SCH ×2 (04:27→08:57)
[2022-11-12] MEDS: ACETAMINOPHEN 325 MG TAB PO PRN (07:25)
[2022-11-12] MEDS: CHECK SCOPOLAMINE PATCH PLACEMENT SCH (07:29)
[2022-11-12] MEDS ORDERED: FLUoxetine HCL 10 MG CAP PO SCH (09:00)
--- NOTE | 2022-11-12 13:38 | Surgery Progress Note ---
Date of Service November 12, 2022 Assessment & Plan (1) Acute cholecystitis due to biliary calculus: Plan: 27 yr old woman with persistent epigastric pain, US showing findings c/w acute cholecystitis. AST/ ALT mildly elevated but t. bili normal, CBD normal size. Low suspicion for common duct stone. Discussed laparoscopic cholecystectomy with risks of bleeding, infection, conversion to open, retained stone or bile leak requiring ercp, postop diarrhea, intolerance to foods. Consent signed. For OR today. Expected recovery time of 1-2 weeks reviewed. 11/12/2022 1:36PM, Dr. Gerardo F/U S/P naldo paul doing, d/C home today. the post-op care instruction was given, pt understood, I answered all questions, Admission and Anticipated Discharge Date Admission Date: November 11, 2022 Subjective F/U S/P naldo paul, POD 1 pt is doing fine, tolerated diet, no N/V, no fever, Physical Exam Constitutional: WD/WN, vitals as above Eyes: PERRL, conjunctivae normal, anicteric sclerae Neck: trachea midline, no thyromegaly Respiratory: normal respiratory effort, lungs clear to auscultation Cardiovascular: RRR, no murmur, no edema Gastrointestinal (Abdomen): soft, NT, ND all incisions intact, no redness, Musculoskeletal: no cyanosis or clubbing, extremities motor strength 5/5 Neurologic: patellar DTR's 2+ bilat, sensation intact Psychiatric: A+Ox3, euthymic affect Results & Data ([facility]) Vital Signs (Past 12 Hours) Vital Signs Temp Pulse Pulse Resp BP Pulse Ox O2 Del Method 11/12/22 07:11 36.6 C 66 16 102/68 97 Room Air 11/12/22 04:30 36.7 C 71 18 114/72 93 Room Air
== END 2022-11-12 14:28 | disposition home or self-care (01) ==
LOC: ED 05:08 → 3W 10:38 → OR 10:38 → 3W 16:29